=== PATIENT | female | born 1950 | race Caucasian/White ===

== ENCOUNTER 2018-12-08 23:45 | Observation (INO) | payer OTHER ==
[2018-12-09 00:22] LABS: Absolute Lymphocytes (CBC) 2.9 K/uL (0.7-4.9); Absolute Monocytes 0.4 K/uL (0.1-1.3); Absolute Neutrophil 3.2 K/uL (1.8-8.0); Basophils % 0.5 % (0-1.3); Eosinophils % 1.5 % (0-4.4); Lymphocytes % 42.8 % (15.3-44.8); MPV 8.7 fL (7.6-11.3); Monocytes % 6.7 % (3.3-12.3); RBC Red Blood Cell Count 4.64 M/uL (3.86-4.86)
[2018-12-09 00:42] LABS: Protime INR 0.98
[2018-12-09 00:43] LABS: ALT/SGPT 31 U/L (12-78); AST/SGOT 14 U/L (15-37); Albumin 3.7 g/dL (3.4-5.0); Alkaline Phosphatase 108 U/L (45-117); BUN Blood Urea Nitrogen 23 mg/dL (7-18); Bicarbonate 24 mmol/L (21-32); Bilirubin Direct < 0.1 mg/dL (0-0.2); Bilirubin Total 0.2 mg/dL (0.2-1.0); Glucose Level 239 mg/dL (74-106); NT PRO-BNP 43 pg/mL (<125); Potassium 4.2 mmol/L (3.5-5.1); Protein, Total 6.9 g/dL (6.4-8.2); Sodium Level 139 mmol/L (136-145); Troponin (Emerg Dept Use Only) 0.03 ng/mL (0.0-0.045)
[2018-12-09] MEDS ORDERED: ASPIRIN 81 MG CHEWABLE TABLET ONE (00:50)
[2018-12-09] MEDS ORDERED: MORPHINE 2 MG/ML SYR ONE (01:34)
--- NOTE | 2018-12-09 01:36 | EDPHYS ---
Physician Documentation [facility] Name: Smita Covarrubias Age: 68 yrs Sex: Female : 1950 Arrival Date: 12/08/2018 Time: 23:46 Bed 6 Private MD: Glenna Butler C ED Physician Fernie Hercules HPI: 12/09 06:13 This 68 yrs old Female presents to ER via Wheelchair with complaints of Chest tw4 Pain. 06:13 The patient or guardian reports chest pain that is located primarily in the substernal tw4 area. Onset: today. The pain does not radiate. Associated signs and symptoms: The patient has no apparent associated signs or symptoms. Duration: The patient or guardian reports a single episode. Severity of pain: At its worst the pain was mild in the emergency department the pain is unchanged. Historical: - Allergies: 00:04 No Known Allergies; tl1 - Home Meds: 00:04 aspirin 81 mg Oral TbEC 1 tab once daily [Active]; allopurinol 300 mg Oral tab 1 tab tl1 once daily [Active]; losartan 25 mg oral tab 1 tab once daily [Active]; Lyrica oral oral [Active]; duloxetine oral oral [Active]; Metformin Oral [Active]; Glipizide Oral [Active]; Magnesium Oxide Oral [Active]; - PMHx: 00:04 Diabetes - NIDDM; Hypertension; Glaucoma; Arthritis; melanoma; tl1 - PSHx: 00:04 Tonsillectomy; Hysterectomy; Appendectomy; ; Knee surgery; tl1 - Immunization history:: Adult Immunizations up to date. - Social history:: Smoking status: Patient/guardian denies using tobacco, never smoked, Patient/guardian denies using alcohol, street drugs. - Ebola Screening: : Patient negative for fever greater than or equal to 101.5 degrees Fahrenheit, and additional compatible Ebola Virus Disease symptoms Patient denies exposure to infectious person Patient denies travel to an Ebola-affected area in the 21 days before illness onset. ROS: 06:13 Constitutional: Negative for fever, chills, and weight loss, ENT: Negative for injury, tw4 pain, and discharge, Respiratory: Negative for shortness of breath, cough, wheezing, and pleuritic chest pain, Abdomen/GI: Negative for abdominal pain, nausea, vomiting, diarrhea, and constipation, Back: Negative for injury and pain, MS/Extremity: Negative for injury and deformity, Skin: Negative for injury, rash, and discoloration. 06:13 Cardiovascular: Positive for chest pain. Exam: 02:58 Constitutional: This is a well developed, well nourished patient who is awake, alert, tw4 and in no acute distress. Head/Face: Normocephalic, atraumatic. Chest/axilla: Normal chest wall appearance and motion. Nontender with no deformity. No lesions are appreciated. Cardiovascular: Regular rate and rhythm with a normal S1 and S2. No gallops, murmurs, or rubs. Normal PMI, no JVD. No pulse deficits. Respiratory: Lungs have equal breath sounds bilaterally, clear to auscultation and percussion. No rales, rhonchi or wheezes noted. No increased work of breathing, no retractions or nasal flaring. Abdomen/GI: Soft, non-tender, with normal bowel sounds. No distension or tympany. No guarding or rebound. No evidence of tenderness throughout. Back: No spinal tenderness. No costovertebral tenderness. Full range of motion. MS/ Extremity: Pulses equal, no cyanosis. Neurovascular intact. Full, normal range of motion. Neuro: Awake and alert, GCS 15, oriented to person, place, time, and situation. Cranial nerves II-XII grossly intact. Motor strength 5/5 in all extremities. Sensory grossly intact. Cerebellar exam normal. Normal gait. Vital Signs: 00:04 BP 149 / 79; Pulse 86; Resp 17; Temp 98.8; Pulse Ox 100% ; Weight 82.55 kg; Height 5 tl1 ft. 6 in. (167.64 cm); Pain 10/10; 00:30 BP 129 / 70; Pulse 78; Resp 17; Pulse Ox 97% on R/A; tl1 01:19 BP 111 / 69; Pulse 77; Resp 15; Pulse Ox 100% ; tl1 02:45 BP 125 / 66; Pulse 72; Resp 13; Pulse Ox 100% on R/A; tl1 04:07 BP 109 / 65; Pulse 68; Resp 17; Temp 98.7(O); Pulse Ox 100% ; Pain 0/10; tl1 00:04 Body Mass Index 29.38 (82.55 kg, 167.64 cm) [facility] MDM: 00:17 Patient medically screened. tw4 06:13 Differential diagnosis: acute myocardial infarction, acute pericarditis, anxiety, chest tw4 wall pain, gastroesophageal reflux disease (GERD), herpes zoster. HEART Score: History:. Data reviewed: vital signs, nurses notes. Data interpreted: Pulse oximetry: Interpretation: normal. Test interpretation: by ED physician or midlevel provider: ECG, plain radiologic studies. Counseling: I had a detailed discussion with the patient and/or guardian regarding: the historical points, exam findings, and any diagnostic results supporting the discharge/admit diagnosis, lab results, radiology results. Physician consultation: A Carrie SHI was contacted at 06:10, regarding admission, patient's condition, and will see patient in inpatient room. 12/08 23:59 Order name: Basic Metabolic Panel [facility] 12/08 23:59 Order name: CBC with Diff [facility] 12/08 23:59 Order name: LFT's [facility] 12/08 23:59 Order name: Magnesium [facility] 12/08 23:59 Order name: NT PRO-BNP [facility] 12/08 23:59 Order name: PT-INR [facility] 12/08 23:59 Order name: Troponin (emerg Dept Use Only) [facility] 12/08 23:59 Order name: XRAY Chest (1 view) [facility] 12/08 23:59 Order name: EKG; Complete Time: 23:59 [facility] 12/08 23:59 Order name: Cardiac monitoring; Complete Time: 00:11 [facility] 12/08 23:59 Order name: EKG - Nurse/Tech; Complete Time: 00:11 12/09 04:25 Order name: Troponin I [facility] 12/08 23:59 Order name: IV Saline Lock; Complete Time: 00:11 [facility] 12/08 23:59 Order name: Labs collected and sent; Complete Time: 00:11 [facility] 12/08 23:59 Order name: O2 Per Protocol; Complete Time: 00:11 [facility] 12/08 23:59 Order name: O2 Sat Monitoring; Complete Time: 00:11 EC:58 Rate is 80 beats/min. Rhythm is regular, Normal Sinus Rhythm. QRS [place] is Normal. RI tw4 interval is normal. QRS interval is normal. QT interval is normal. No Q waves. T waves are Normal. Clinical impression: Normal ECG. Interpreted by me. Reviewed by me. Administered Medications: 00:40 Drug: Aspirin Chewable Tablet 324 mg Route: PO; tl1 02:28 Follow up: Response: No adverse reaction; No change in condition tl1 01:26 Drug: morphine 2 mg Route: IVP; Infused Over: 2 mins; Site: right antecubital; tl1 02:28 Follow up: Response: No adverse reaction; No change in condition; Pain is unchanged, tl1 physician notified Disposition: 12/09/18 01:36 Hospitalization ordered by Glenna Butler for Observation. Preliminary diagnosis is Chest pain, unspecified. - Bed requested for Telemetry/MedSurg (observation). - Status is Observation. tl1 - Condition is Stable. - Problem is new. - Symptoms have improved. UTI on Admission? No Signatures: Dispatcher [employer] EDMS Kathie Hinkle RN RN tl1 Robyn Barton RN RN Fernie Hercules MD MD tw4 Corrections: (The following items were deleted from the chart) 03:22 01:36 Hospitalization Ordered by A Carrie SHI for Observation. Preliminary diagnosis is cg Chest pain, unspecified. Bed requested for Telemetry/MedSurg (observation). Status is Observation. Condition is Stable. Problem is new. Symptoms have improved. UTI on Admission? No. tw4 04:28 03:22 12/09/2018 01:36 Hospitalization Ordered by A Carrie SHI for Observation. tl1 Preliminary diagnosis is Chest pain, unspecified. Bed requested for Telemetry/MedSurg (observation). Status is Observation. Condition is Stable. Problem is new. Symptoms have improved. UTI on Admission? No. cg
--- NOTE | 2018-12-09 01:36 | ER ---
Nurse's Notes [facility] Name: Smita Covarrubias Age: 68 yrs Sex: Female : 1950 Arrival Date: 12/08/2018 Time: 23:46 Bed 6 Private MD: Glenna Butler C Diagnosis: Chest pain, unspecified Presentation: 12/08 23:59 Presenting complaint: Patient states: for about 2 weeks I have been having intermittent tl1 chest pain that feels like pins and needles and a punching feeling every 30 seconds or so. Transition of care: patient was not received from another setting of care. Onset of symptoms was November 23, 2018. Risk Assessment: Do you want to hurt yourself or someone else? Patient reports no desire to harm self or others. Initial Sepsis Screen: Does the patient meet any 2 criteria? No. Patient's initial sepsis screen is negative. Does the patient have a suspected source of infection? No. Patient's initial sepsis screen is negative. Care prior to arrival: None. 23:59 Method Of Arrival: Wheelchair tl1 23:59 Acuity: SHAHAB 3 tl1 Historical: - Allergies: 12/09 00:04 No Known Allergies; tl1 - Home Meds: 00:04 aspirin 81 mg Oral TbEC 1 tab once daily [Active]; allopurinol 300 mg Oral tab 1 tab tl1 once daily [Active]; losartan 25 mg oral tab 1 tab once daily [Active]; Lyrica oral oral [Active]; duloxetine oral oral [Active]; Metformin Oral [Active]; Glipizide Oral [Active]; Magnesium Oxide Oral [Active]; - PMHx: 00:04 Diabetes - NIDDM; Hypertension; Glaucoma; Arthritis; melanoma; tl1 - PSHx: 00:04 Tonsillectomy; Hysterectomy; Appendectomy; ; Knee surgery; tl1 - Immunization history:: Adult Immunizations up to date. - Social history:: Smoking status: Patient/guardian denies using tobacco, never smoked, Patient/guardian denies using alcohol, street drugs. - Ebola Screening: : Patient negative for fever greater than or equal to 101.5 degrees Fahrenheit, and additional compatible Ebola Virus Disease symptoms Patient denies exposure to infectious person Patient denies travel to an Ebola-affected area in the 21 days before illness onset. Screenin:08 Abuse screen: Denies threats or abuse. Denies injuries from another. Nutritional tl1 screening: No deficits noted. Tuberculosis screening: No symptoms or risk factors identified. Fall Risk IV access (20 points). Assessment: 00:08 General: Appears in no apparent distress. Behavior is calm, cooperative, appropriate tl1 for age. Pain: Complains of pain in anterior aspect of left upper chest Pain does not radiate. Quality of pain is described as sharp, stinging, Pain began approx 2 weeks [employer] Is intermittent. Neuro: Level of Consciousness is awake, alert, obeys commands, Oriented to person, place, time, situation. Cardiovascular: Reports chest pain, Denies nausea, palpitations, shortness of breath, Capillary refill < 3 seconds Patient's skin is warm and dry. Rhythm is regular. Respiratory: Airway is patent Trachea midline Respiratory effort is even, unlabored, Breath sounds are clear bilaterally. GI: Abdomen is non-distended, Bowel sounds present X 4 quads. Abd is soft and non tender X 4 quads. : No signs and/or symptoms were reported regarding the genitourinary system. 04:08 Reassessment: No changes from previously documented assessment. Patient and/or family tl1 updated on plan of care and expected duration. Pain level reassessed. Patient is alert, oriented x 3, equal unlabored respirations, skin warm/dry/pink. Vital Signs: 00:04 BP 149 / 79; Pulse 86; Resp 17; Temp 98.8; Pulse Ox 100% ; Weight 82.55 kg; Height 5 tl1 ft. 6 in. (167.64 cm); Pain 10/10; 00:30 BP 129 / 70; Pulse 78; Resp 17; Pulse Ox 97% on R/A; tl1 01:19 BP 111 / 69; Pulse 77; Resp 15; Pulse Ox 100% ; tl1 02:45 BP 125 / 66; Pulse 72; Resp 13; Pulse Ox 100% on R/A; tl1 04:07 BP 109 / 65; Pulse 68; Resp 17; Temp 98.7(O); Pulse Ox 100% ; Pain 0/10; tl1 00:04 Body Mass Index 29.38 (82.55 kg, 167.64 cm) tl1 ED Course: 12/08 23:46 Patient arrived in ED. edilia 23:46 Glenna Butler MD is Private Physician. edilia 23:58 Kathie Hinkle, RN is Primary Nurse. tl1 12/09 00:00 Triage completed. tl1 00:05 Arm band placed on right wrist. tl1 00:05 Patient has correct armband on for positive identification. Placed in gown. Call light tl1 in reach. Side rails up X 1. youth nutritional monitor on. Pulse ox on. NIBP on. 00:07 No provider procedures requiring assistance completed. Inserted saline lock: 20 gauge tl1 in right antecubital area, using aseptic technique. Blood collected. Patient maintains SpO2 saturation greater than 95% on room air. 00:14 X-ray completed. Portable x-ray completed in exam room. Patient tolerated procedure kw well. 00:16 XRAY Chest (1 view) In Process Unspecified. EDMS 00:17 Fernie Hercules MD is Attending Physician. tw4 01:34 Glenna Butler MD is Hospitalizing Provider. tw4 04:09 Patient admitted, IV remains in place. tl1 Administered Medications: 00:40 Drug: Aspirin Chewable Tablet 324 mg Route: PO; tl1 02:28 Follow up: Response: No adverse reaction; No change in condition tl1 01:26 Drug: morphine 2 mg Route: IVP; Infused Over: 2 mins; Site: right antecubital; tl1 02:28 Follow up: Response: No adverse reaction; No change in condition; Pain is unchanged, tl1 physician notified Outcome: 01:36 Decision to Hospitalize by Provider. tw4 04:08 Admitted to Tele accompanied by tech, via wheelchair, with chart, Report called to Mulu sainz RN 04:08 Condition: stable 04:08 Instructed on the need for admit. 04:28 Patient left the ED. tl1 Signatures: Dispatcher [employer] Skylar Rodriguez Kimberlee kw Lasagna, Tonya, RN RN tl1 Fernie Hercules MD MD tw4
[2018-12-09 06:12] VITALS: BMI 29.3
[2018-12-09] MEDS ORDERED: D50W 25 GM/50 ML SYRINGE IV PRN (07:23)
[2018-12-09] MEDS ORDERED: GLUCAGON 1 MG/VIAL IM PRN (07:23)
[2018-12-09] MEDS: INSULIN -REGULAR HUMAN 50 UNIT/0.5 ML ML SQ SCH ×2 (07:30→12:18)
[2018-12-09] MEDS ORDERED: INFLUENZA VACCINE (for 3y+) 0.5 ML DOSE IMVAC ONE (08:00)
[2018-12-09] MEDS ORDERED: HOME MED 1 EA UNK (Metformin Hcl [Metformin Hcl] 1 TAB) PO SCH (08:00)
--- NOTE | 2018-12-09 08:05 | RAD REPORT ---
EXAM DESCRIPTION: Alissa Single View12/09/2018 12:15 am CLINICAL HISTORY: Chest pain COMPARISON: November 27, 2018 FINDINGS: The lungs appear clear of acute infiltrate. The heart is normal size IMPRESSION: No acute abnormalities displayed
--- NOTE | 2018-12-09 08:44 | EKG ---
Test Date: 2018-12-08 Test Time: 23:54:17 [place] Supervisor: EDDIE MEASUREMENT RESULTS: Intervals: Rate: 80 [place]: 140 QRSD: 94 QT: 388 QTc: 447 Spencer: P: 40 KY: 140 QRS: 63 T: 74 INTERPRETIVE STATEMENTS: Normal sinus rhythm Normal ECG Compared to ECG 01/24/2015 17:09:07 No significant changes Electronically Signed On 12-09-18 08:43:08 SIDE LASTER by Charlie Zaragoza
[2018-12-09] MEDS ORDERED: ASPIRIN EC 81 MG TAB PO SCH (09:00)
[2018-12-09] MEDS ORDERED: DULOXETINE HCL 30 MG PO SCH (09:00)
[2018-12-09] MEDS ORDERED: GLIPIZIDE PO SCH (09:00)
[2018-12-09] MEDS ORDERED: HOME MED 1 EA UNK (Allopurinol [Allopurinol] 300 MG) PO SCH (09:00)
[2018-12-09] MEDS ORDERED: HOME MED 1 EA UNK (Losartan Potassium [Losartan Potassium] 25 MG) PO SCH (09:00)
[2018-12-09] MEDS ORDERED: HOME MED 1 EA UNK (Pregabalin [Lyrica*] 50 MG) PO SCH (09:00)
[2018-12-09] MEDS ORDERED: HOME MED 1 EA UNK (Rosuvastatin Calcium [Rosuvastatin Calcium] 20 MG) PO SCH (09:00)
--- NOTE | 2018-12-09 10:52 | RAD REPORT ---
EXAM DESCRIPTION: US - Abdomen Exam Complete - 12/09/2018 9:50 am CLINICAL HISTORY: Abdominal pain, right flank pain COMPARISON: Abdomen ultrasound March 2018, CT imaging January 2014 FINDINGS: Gallbladder size is normal. Multiple 10 mm or less sized mobile gallstones are identified. There is no wall thickening or pericholecystic fluid seen. Common bile duct is normal with no common duct stone identified. Liver is 16 cm in maximum dimension. Spleen is 10 cm in maximum dimension. No focal liver or spleen lesion. No liver capsular nodularity. Liver echogenicity is fractionally incre ased. This could indicate a very mild fatty infiltration pattern. Doppler evaluation shows normal selam w direction and velocity of the portal vein. The pancreas is grossly normal but partially obscured. Mild fullness of the right renal pelvis and lower pole calices noted new from the 2018 ultrasound. Ea rly hydronephrosis related to an obstructing calculus is possible. Patient has had prior episodes of obstructing calculi. No left-sided hydronephrosis. No abnormal cortical echogenicity. Cortex is sanjana l in thickness. No solid mass lesions identifiable. Aorta and IVC show no suspicious findings. No ascites or bulky lymphadenopathy. IMPRESSION: Fullness of the right side renal pelvis and lower pole calices new from March 2018 ultras ound. In a patient with prior history of obstructing renal calculi, findings could reflect early hydr onephrosis. As clinical findings warrant, followup CT stone protocol study could be performed to confirm the darcie y hydronephrosis and to localize any obstructing calculus. Multi stone cholelithiasis as previously detailed. No acute gallbladder or biliary tree findings evid ent.
--- NOTE | 2018-12-09 13:41 | RAD REPORT ---
EXAM DESCRIPTION: CT - Stone Protocol - 12/09/2018 1:17 pm CLINICAL HISTORY: Abdominal pain. Right flank pain COMPARISON: 2013 TECHNIQUE: Computed axial tomography of the abdomen pelvis was obtained without oral or IV contrast. Lack of IV and oral contrast limits evaluation of solid organs, bowel, and vessels. Coronal reformat samantha images were obtained and reviewed. All CT scans are performed using dose optimization technique as appropriate and may include automated exposure control or mA/KV adjustment according to patient size. FINDINGS: Bilateral small nonobstructing renal calculi. Mild fullness of the right renal pelvis with out an obstructing calculus. A ureteral calculus is not seen. A bladder calculus is not noted. The liver, spleen, pancreas and adrenals appear grossly normal Gallstones without gallbladder wall thickening Spondylosis involves the lumbar spine resulting spinal stenosis IMPRESSION: Small bilateral nonobstructing renal calculi Cholelithiasis without cholecystitis
[2018-12-09 15:26] VITALS: O2SAT 99
[2018-12-09 17:58] VITALS: BP 134/79; TEMP 97.3
--- NOTE | 2018-12-11 01:48 | CON ---
Date of Consultation: 12/09/2018 Reason For Consultation: Chest pain. History Of Present Illness: Ms. Covarrubias is a 68-year-old white woman who has multiple cardiac risk fac tors for heart disease including diabetes, dyslipidemia. She also has a history of gout and neuropat hy from diabetes. She has been going under a lot of stress from caring for her . She came in with sharp fleeting chest pain that is nonexertional, mostly in the left upper chest. Her symptoms would last for seconds. Denied any nausea, vomiting, PND, orthopnea, pedal edema, palpitations, or s yncope. Denied any fever, cough, and chills. She has already had a normal chest x-ray, normal tropo ramirez, and a normal EKG. Past Medical History: As stated above. Allergies: NONE. Review of Systems: Negative. Social History: Negative for tobacco. Family History: Positive for heart disease. Medications: At home include allopurinol, glipizide, Victoza, losartan, metformin, Lyrica, and Crest or. Physical Examination: General: She was pleasant. No acute distress. Vital Signs: Stable. Sinus rhythm. HEENT: Negative. Neck: Supple with no bruit. Chest: Clear to auscultation and percussion. Cardiac: Revealed a regular rhythm and rate without any murmurs, gallops, or rubs. Abdomen: Benign. Extremities: Revealed no clubbing, cyanosis, or edema. Diagnostic Data: Within normal limit. An abdominal ultrasound is pending. Impression And Plan: Atypical chest pain in a patient with multiple cardiac risk factors. Chest donn n sounds more pleuritic or musculoskeletal, but nevertheless, with her cardiac risk factors, I think obtaining an echocardiogram and a stress test is reasonable. This certainly can be done as an outpat ient. The case was discussed with Dr. Butler. Her diabetes and dyslipidemia seem to be well controlroberth MENESES Voice ID: [id number] Report ID: [id number]
== END 2018-12-09 16:58 | disposition home or self-care (01) ==
LOC: ER 23:45 → ERHOLD 12-09 02:54 → 4TH 12-09 04:10
PROVIDERS: ADMIT Internal Medicine; ATTEND Internal Medicine
DX: R07.89 Other chest pain (principal); E11.9 Type 2 diabetes mellitus without complications; E78.5 Hyperlipidemia, unspecified; M10.9 Gout, unspecified; Z23 Encounter for immunization
CPT/HCPCS: 93005; 85025; 80048; 36415 ×2; 83735; 85610; 82962 ×3; 80076; 84484 ×4; 83880; 76377; 74176; 71045; 76700; 96374; 99285; G0008; Q2035; J2270; G0378 ×2

== ENCOUNTER 2021-07-30 09:08 | Observation (INO) | payer OTHER ==
[2021-07-30] MEDS ORDERED: D50W 25 GM/50 ML SYRINGE IV PRN (11:01)
[2021-07-30] MEDS ORDERED: GLUCAGON 1 MG/VIAL IM PRN (11:01)
[2021-07-30] MEDS ORDERED: ONDANSETRON 4 MG/2 ML VIAL IV PRN (11:03)
[2021-07-30] MEDS ORDERED: MORPHINE 2 MG/ML SYR IV PRN (11:03)
[2021-07-30 11:30] LABS: Absolute Lymphocytes (CBC) 1.9 K/uL (0.7-4.9); Basophils % 0.6 % (0-1.3); Hematocrit 37.7 % (36.0-45.0); Lymphocytes % 27.5 % (15.3-44.8); MPV 8.5 fL (7.6-11.3); RBC Red Blood Cell Count 4.63 M/uL (3.86-4.86)
[2021-07-30] MEDS: INSULIN -REGULAR HUMAN 50 UNIT/0.5 ML ML SQ SCH ×3 (11:30→21:21)
[2021-07-30 11:31] LABS: Protime INR 0.96
[2021-07-30 12:00] LABS: Albumin 3.9 g/dL (3.4-5.0); Bilirubin Total 0.3 mg/dL (0.2-1.0); Magnesium 1.8 mg/dL (1.8-2.4); Potassium 4.6 mmol/L (3.5-5.1); Protein, Total 7.4 g/dL (6.4-8.2)
[2021-07-30] MEDS: NA CHLORIDE 0.9% 1,000 ML IV SCH ×2 (12:00→22:00)
[2021-07-30] MEDS: METRONIDAZOLE 500mg IVPB 500 MG/100 ML BAG IV SCH ×2 (12:00→16:41)
[2021-07-30] MEDS ORDERED: MAGNESIUM SULFATE 1 gm IVPB 1 GM/100 ML BAG IV ONE (12:35)
--- NOTE | 2021-07-30 13:13 | RAD REPORT ---
EXAM DESCRIPTION: US - Abdomen Exam Complete - 07/30/2021 12:56 pm CLINICAL HISTORY: acute cholecystitis COMPARISON: Stone Protocol dated 07/12/2021; Abdomen Exam Complete dated 12/09/2018 FINDINGS: Gallbladder size is normal. Several small gallstones are identifiable. This has been previ ously demonstrated. No stone was seen is fixed at the neck. There is no wall thickening or pericholec ystic fluid identified. Common bile duct is normal with no common duct stone identified. Liver shows a coarsened, increased echogenicity consistent with a diffuse fatty infiltration. Small a reas of comparatively hypoechoic liver parenchyma noted. These are believed to be areas of spared par enchyma. Neoplastic or other aggressive liver lesion is felt to be unlikely. No portal vein abnormali ty seen. The pancreas is grossly normal but partially obscured by bowel. No hydronephrosis or suspicious mass in either kidney. Small renal cysts are present. No worrisome re nal finding. Aorta and IVC show no significant finding. No ascites or bulky lymphadenopathy. IMPRESSION: Cholelithiasis is present similar to prior imaging studies. Acute cholecystitis findings are not seen. Fatty infiltration of the liver with areas of spared parenchyma seen. Aggressive or worrisome liver l esion not identified.
[2021-07-30 13:19] VITALS: BMI 31.3
--- NOTE | 2021-07-30 13:36 | RAD REPORT ---
EXAM DESCRIPTION: RAD - Chest Pa And Lat (2 Views) - 07/30/2021 12:55 pm CLINICAL HISTORY: acute cholecystitis COMPARISON: Portable November 2018 TECHNIQUE: Frontal and lateral views of the chest were obtained. FINDINGS: The lungs are clear. Heart size is normal and central vasculature is within normal limit s. No pleural effusion or pneumothorax seen. No acute bony finding noted. No aortic abnormality. IMPRESSION: No acute cardiopulmonary process. No significant change from comparison study.
[2021-07-30] MEDS ORDERED: Levofloxacin500mg IV 500 MG/100 ML BAG IV SCH (14:00)
[2021-07-30] MEDS ORDERED: NA CHLORIDE 0.9% 1,000 ML ONE (14:08)
[2021-07-30] MEDS ORDERED: CEFOXITIN/NS 1gm 1 GM/50 ML BAG ONE (14:13)
[2021-07-30 14:25] LABS: Urine Appearance CLEAR (Clear); Urine Blood NEGATIVE (Negative); Urine Color YELLOW (Yellow); Urine Glucose NEGATIVE (Negative); Urine Protein 2+ (Negative); Urine Specific Gravity 1.025 (1.005-1.030); Urine Urobilinogen 0.2 mg/dL (0.2-1.0); Urine pH 5.5 (5.0-7.0)
[2021-07-30 14:29] LABS: Urine Bilirubin 1+ (Negative)
[2021-07-30] MEDS ORDERED: LIDOCAINE 2% MPF 5 ML VIAL ONE (14:33)
[2021-07-30] MEDS ORDERED: propofoL 200 MG/20 ML VIAL IV ONE (14:33)
[2021-07-30] MEDS ORDERED: ROCURONIUM 50 MG/5 ML VIAL IV ONE (14:33)
[2021-07-30] MEDS ORDERED: FENTANYL CITR 100 MCG/2 ML ONE (14:33)
[2021-07-30] MEDS ORDERED: MIDAZOLAM HCL 2 MG/2 ML INJ ONE (14:33)
[2021-07-30] MEDS ORDERED: ONDANSETRON 4 MG/2 ML VIAL ONE (14:34)
[2021-07-30 14:38] LABS: Urine Bacteria NONE SEEN /HPF (<20); Urine Mucus 1+ /HPF (NONE SEEN); Urine RBC <5 /HPF (NONE SEEN)
[2021-07-30] MEDS ORDERED: KETOROLAC 30 MG/ML INJ ONE (15:26)
[2021-07-30] MEDS ORDERED: dexAMETHasone 10 MG/ML VIAL ONE (15:26)
[2021-07-30] MEDS ORDERED: GLYCOPYRROLATE 0.2 MG/ML SYR ONE (15:30)
[2021-07-30] MEDS ORDERED: NEOSTIGMINE 1 MG/ML -5 ML ONE (15:30)
--- NOTE | 2021-07-30 15:36 | P.OP ---
Physician/Allergy/Immunology: Jesse SEAY Preoperative diagnosis: Acute Cholecystitis and Cholelithiasis Postoperative diagnosis: Same Primary procedure: Lap Cara Anesthesia: General Estimated blood loss: min Specimen: GB Findings: as above Complications: None Transferred to: Recovery Room Condition: Good
[2021-07-30] MEDS ORDERED: HYDROCODONE/APAP 7.5/325 MG TAB PO PRN (15:53)
[2021-07-30] MEDS ORDERED: LABETALOL 20 MG/4ML SYRINGE IV ONE (16:14)
[2021-07-30] MEDS ORDERED: Ringers Lactate 1,000 ML IV ONE (16:18)
[2021-07-30] MEDS ORDERED: HYDROMORPHONE HCL 1 MG/ML INJ ONE (16:26)
[2021-07-30] MEDS ORDERED: INSULIN -REGULAR HUMAN 50 UNIT/0.5 ML ML ONE (16:40)
[2021-07-30] MEDS ORDERED: PNEUMOCOCCAL VACCINE 0.5 ML IMVAC ONE (18:00)
[2021-07-30] MEDS ORDERED: INFLUENZA VACCINE (for 6+ mo) 0.5 ML DOSE IMVAC ONE (18:00)
--- NOTE | 2021-07-30 18:13 | PREOPCON ---
Date of Consultation: 07/30/2021 Chief Complaint: Abdominal pain. History Of Present Illness: The patient is a 70-year-old female, who presented to Dr. Butler's office early this morning with epigastric pain, right upper quadrant pain going to the back, associated with nausea, bloating, heartburn and the pain also was underneath the breasts on both sides that has subs ided. She does not have any diarrhea, constipation, blood in her stool. No dysuria or hematuria. N o sore throat, runny nose, cough, headaches, or dizziness. No chest pain. No fever or chills. The patient did have a CAT scan done earlier this month first ordered by the urologist because of recurre nt UTIs. She does have a history of stones. In that report she was found to have a mild acute sigmo id diverticulitis. She was clinically asymptomatic for it so I am not sure whether the urologist mendy ated that or not; however, her pain is not in the left lower quadrant at this time. Review of Systems: Otherwise unremarkable. Past Medical History: None for diabetes. 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 Allergies: NO ALLERGIES. Social History: She denies smoking or drinking. Family History: Significant for diabetes. Physical Examination: Vital Signs: Stable. She is afebrile. She is awake, alert, and oriented x3. Head and neck: Cranial nerves 2 through 12 are grossly within normal limits. No neck masses. No JV D. Throat clear. Neck supple. Chest: Clear. Heart: S1 and S2. Abdomen: Soft, nondistended. Positive bowel sounds. Positive right upper quadrant tenderness. Min imal rebound. No rigidity or guarding. Extremity: Adequately perfused. Nontender. Neuro: Nonfocal. Laboratory Data: Shows white count to be 6.9, H and H 12.5 and 37.7. INR is 0.96. Chemistry review ed. Her amylase, lipase, LFTs are within normal limits. Glucose is 238. Ultrasound of the abdomen reviewed with Dr. Cole, which showed multiple gallstones. No radiographic evidence of gallbladder wall thickening. No pericholecystic fluid. Common bile duct was 4 mm. Assessment: Acute cholecystitis and cholelithiasis. Plan discussed with Dr. Butler and we will procee d with laparoscopic cholecystectomy, possible open. The patient understands the risks, benefits, and alternatives and agrees to procedure. /MODL Voice ID: [id number] Report ID: [id number]
[2021-07-30] MEDS: HYDROMORPHONE HCL 1 MG/ML INJ IV PRN ×2 (18:17→23:04)
--- NOTE | 2021-07-30 20:34 | OP ---
Date of Procedure: 07/30/2021 Surgeon: Nick Brown MD Dip Unit Operator: Jesse Kerr, library technical assistant certified. Preoperative Diagnosis: Acute cholecystitis and cholelithiasis. Postoperative Diagnosis: Acute cholecystitis and cholelithiasis with some adhesions. Procedure Performed: Laparoscopic cholecystectomy and lysis of adhesions. Estimated Blood Loss: Minimal. Specimen: Gallbladder. Finding: As above. Anesthesia: General. Complications: None. Disposition: The patient tolerated procedure in stable condition. Taken to recovery in good general condition. Procedure In Detail: The patient was brought to the OR and placed in supine position. General anest hesia begun. The patient was prepped and draped in usual sterile fashion. Marcaine 0.5% was infiltr ated locally. A 15-blade was used to make a 1 cm supraumbilical midline incision. Subcutaneous tiss ue divided. Fascia identified and divided. #1 Vicryl stay suture was placed. Peritoneal cavity ent ered with sharp and blunt dissection. 12 mm trocar was placed into the peritoneal cavity under direc t vision. Pneumoperitoneum was established. Three 5 mm trocars were placed, [address] to the right of midline and 2 in the right subcostal region. Laparoscopy revealed chronic inflamm ation of the gallbladder with adhesions that were omental in nature, attached to the gallbladder as w ell as the liver right next to the gallbladder. These adhesions were taken down with sharp and blunt dissection. Bleeding controlled with cautery. The cautery was utilized as needed. Fundus was iden tified and retracted superiorly. Infundibulum was identified and retracted inferolaterally. Cystic duct and cystic artery were clearly identified with blunt dissection. Clips placed. Both structures divided. Cautery was used to remove the gallbladder from the liver bed. Bleeding on the liver bed was controlled with cautery. Gallbladder was retrieved through the umbilicus via an EndoCatch bag. Right upper quadrant was irrigated. Effluent was clear. No evidence of bleeding or bile leakage danny reciated. Subsequently, all trocars were removed under direct vision. No evidence of bleeding seen when they were removed and then stay sutures tied to each other to reapproximate the fascial defect. Subcutaneous wounds were irrigated, bleeding controlled with cautery. 2-0 chromic used to approxima te subcutaneous tissue and 4-0 Monocryl was used to close skin. Sterile dressing applied. The patie nt was awakened and taken to Recovery in good general condition. /MODL Voice ID: [id number] Report ID: [id number]
--- NOTE | 2021-07-30 20:55 | HP ---
Date of Admission: 07/30/2021 Chief Complaint: Abdominal pain. History Of Present Illness: This is a 70-year-old very pleasant female patient, who came into office today with 5 days history of having pain in both breast areas, epigastric region and right upper quadrant. She describes the pain is constant. No aggravating or relieving factors. No fever. Has had some nausea, but no vomiting. No chest pain. No shortness of breath. Today, her pain started to go to right scapular region as well. After I evaluated her, she was admitted to hospital with acute cholecystitis. Allergies: NO KNOWN ALLERGIES. Medications: Allopurinol 300 mg daily, alprazolam 0.25 mg daily at bedtime as needed for sleep, aspirin 81 mg p.o. daily, duloxetine 30 mg p.o. daily, glipizide 5 mg p.o. 2 times a day, losartan 25 mg p.o. daily, magnesium oxide 500 mg p.o. daily, meloxicam 15 mg p.o. daily as needed for arthritis, metformin 1000 mg p.o. 2 times a day, rosuvastatin 20 mg p.o. daily in the evening, Januvia 100 mg p.o. daily, vitamin B12 1000 mcg p.o. daily. Review of Systems: GI: As mentioned above. All other systems reviewed and negative. Past Medical History: Significant for type 2 diabetes mellitus which is uncontrolled, hypertension, mixed hyperlipidemia, known alcoholic fatty liver disease, kidney stones, and depression. Past Surgical History: Significant for tonsillectomy, wisdom tooth extraction, appendectomy, hysterectomy, knee surgery which was arthroscopic knee surgery, and removal of squamous cell carcinoma from scalp. Family History: Father , had Alzheimer disease and diabetes. Mother hypertension and rheumatoid arthritis. Social History: Negative for smoking and negative for alcohol use. Immunization History: The patient had her first dose of COVID-19 vaccine in November 01, 2020, second dose in November 22, 2020. Physical Examination: Vital Signs: Blood pressure 137/82, pulse 86, temperature 97.6, respiratory rate 15, weight 195.6 pounds, height 66 inches. General: Awake, alert, oriented, not in distress. HEENT: Head atraumatic, normocephalic. Conjunctivae nonerythematous. Sclerae white. Mouth, no thrush or edema noted. Ears/Nose, no mass, lesion, discharge noted. Neck: Supple. No JVD, lymph nodes, bruit, thyromegaly noted. Lungs: Bilateral good equal air entry. Clear to auscultation. No rhonchi. No rales. Heart: Normal heart sounds, no murmur or gallop. Abdomen: Soft. Bowel sounds normal. No guarding, rigidity, distention. No rebound tenderness. No hepatosplenomegaly. No bruit. The patient does have right upper quadrant tenderness. Extremities: No leg edema. No calf tenderness. Skin: No rash, ulcer, cellulitis. Lymphatics: No lymph node enlargement in neck, supraclavicular, infraclavicular region. Neuro: No focal neurological deficit. Chest: Unremarkable. External Genitalia: Deferred. Rectal: Deferred. Laboratory Data: White count 6.9, hemoglobin 12.5, platelets 209. Sodium 139, potassium 4.6, chloride 106, bicarb 24, BUN 27, creatinine 1.08, glucose 253. Liver function tests normal. Amylase 49, lipase 373. Urinalysis negative except 2+ protein. COVID-19 test negative. Chest x-ray; no acute cardiopulmonary changes. Abdominal ultrasound shows evidence of gallstone and fatty liver. Impression: 1. Acute cholecystitis with gallstone, without obstruction. 2. Nonalcoholic fatty liver disease. 3. Type 2 diabetes mellitus, uncontrolled. 4. Hypertension. 5. Mixed hyperlipidemia. 6. Depression. 7. Diverticulosis. Plan: We will go ahead and admit the patient to hospital for further evaluation and management of this problem. After the patient was admitted to hospital, blood work and urinalysis, chest x-ray, EKG, and ultrasound were done, results reviewed. I have requested surgical consultation from Dr. Brown and all the details were discussed with him and he evaluated the patient and subsequently took the patient to surgery today for laparoscopic cholecystectomy and surgery was done this afternoon and postoperatively the patient is doing well. I will see her tomorrow morning for followup. We will go ahead and give her pain medication and nausea medication as needed. SCD was ordered for DVT prophylaxis. Manage diabetes with sliding scale insulin and we will continue home medications per order and I will see her tomorrow morning for followup. Details and plan of treatment discussed with the patient. MAYO/MODL Voice ID: [id number] MTDD
[2021-07-31] MEDS: NA CHLORIDE 0.9% 1,000 ML IV SCH ×2 (01:22→08:00)
[2021-07-31] MEDS: METRONIDAZOLE 500mg IVPB 500 MG/100 ML BAG IV SCH ×2 (01:22→09:04)
[2021-07-31 06:06] LABS: Absolute Lymphocytes (CBC) 0.5 K/uL (0.7-4.9); Basophils % 0.1 % (0-1.3); Hematocrit 33.3 % (36.0-45.0); Lymphocytes % 4.6 % (15.3-44.8); MPV 8.6 fL (7.6-11.3); RBC Red Blood Cell Count 4.08 M/uL (3.86-4.86)
[2021-07-31] MEDS: HYDROMORPHONE HCL 1 MG/ML INJ IV PRN (06:54)
[2021-07-31 07:10] LABS: Magnesium 2.1 mg/dL (1.8-2.4); Phosphorus 3.4 mg/dL (2.5-4.9)
[2021-07-31] MEDS ORDERED: GLUCAGON 1 MG/VIAL IM PRN (07:18)
[2021-07-31] MEDS ORDERED: D50W 25 GM/50 ML SYRINGE IV PRN (07:18)
[2021-07-31] MEDS ORDERED: INSULIN GLARGINE 100 UNITS/ML SQ SCH (08:00)
[2021-07-31] MEDS ORDERED: METFORMIN HCL 500 MG TAB PO ONE (08:06)
[2021-07-31] MEDS ORDERED: glipiZIDE 5 MG TAB PO ONE (08:30)
[2021-07-31 08:46] LABS: Blood Morphology Comment NOT SEEN (NOT SEEN); Platelet Estimate ADEQ
[2021-07-31 09:00] VITALS: BP 118/57; TEMP 96.8
[2021-07-31] MEDS: INSULIN -REGULAR HUMAN 50 UNIT/0.5 ML ML SQ SCH (09:05)
[2021-07-31 09:18] VITALS: O2SAT 99
--- NOTE | 2021-07-31 14:15 | PN ---
Date of Progress Note: 07/31/2021 Subjective: The patient is awake, alert, tolerating diet, ambulating. Pain controlled with p.o. donn n medications. Afebrile. Objective: Vital Signs: Stable, afebrile. Abdomen: Benign. Laboratory Data: Checked. She did have a high potassium. It was rechecked and it was normal, so it was a hemolyzed specimen. Her H and H are stable. Assessment: Status post laparoscopic cholecystectomy for acute cholecystitis and cholelithiasis. Recommendations: The patient cleared from surgical standpoint for discharge. Followup in my office in a week. Discharge instructions given. /MODL Voice ID: [id number] Report ID: [id number]
--- NOTE | 2021-08-01 09:17 | DS ---
Date of Discharge: 07/31/2021 Disposition: Discharged to go home. Physical Examination: HEENT: Unremarkable. Lungs: Clear to auscultation. Heart: Sounds normal. Abdomen: Soft. Bowel sounds normal. No guarding, rigidity, tenderness, distention. Extremity: No leg edema. Laboratory Data: Upon admission; white count 6.9, hemoglobin 12.5, platelets 209 and repeat white co unt today 11.4, hemoglobin 11.1, platelets 170. Upon admission; sodium 139, potassium 4.6, chloride 106, bicarb 24, BUN 27, creatinine 1.08, glucose 253. Today; potassium was 6 and glucose 403. Repea t potassium this morning came back at 5.1. Hospital Course: This is a 70-year-old pleasant female patient, came into office and was admitted to the hospital with abdominal pain. After the patient was evaluated in the office, she was admitted t o the hospital with acute cholecystitis with gallstone. Please see dictated H and P for more informa tion. After she was admitted to the hospital, routine blood work was done and abdominal ultrasound w as done which showed evidence of gallstones without any evidence of obstruction. Dr. Brown was consu lted from General Surgery and he took the patient to surgery on the day of admission. This morning w junior I saw her after surgery, she is feeling much better. Pain that she had prior to the hospital adm ission and prior to surgery has resolved now. Her potassium this morning came back elevated at 6 and repeat potassium came back 5.1. So, Kayexalate 30 g p.o. x1 dose was ordered. I also ordered her L antus 10 units insulin subcutaneous injection x1 dose and she will also receive insulin per sliding s coral. The patient has not received any of her diabetes medication since admission because yesterday when she was admitted, she was n.p.o. for the surgery and today she will restart all her diabetes med ications. This morning, we did give her glipizide and metformin. The patient has uncontrolled type 2 diabetes mellitus with recent hemoglobin A1c around 11 and she is going to see manager urgent care in [facility] for further management of her diabetes. Final Diagnoses: 1.Acute cholecystitis with gallstones, without obstruction. 2.Hyperkalemia. 3.Type 2 diabetes mellitus, uncontrolled. 4.Nonalcoholic fatty liver disease. 5.Hypertension. 6.Mixed hyperlipidemia. 7.Depression. 8.Diverticulosis. Discharge Medications And Instructions: 1.Continue all prior home medications. 2.Take Levaquin 500 mg daily and metronidazole 500 mg 3 times a day for 1 week and prescription was sent to [facility]. 3.Take Tylenol 500 mg 4 times a day as needed for pain and she may take tramadol 50 mg 4 times a day as needed for pain if Tylenol does not help and prescription was written for 20 tablets. 4.Follow up at my office on 08/05/2021 at 10 a.m. 5.Follow up with Dr. Brown next week per his instruction. MAYO/MODL Voice ID: [id number] Report ID: [id number]
== END 2021-07-31 10:49 | disposition home or self-care (01) ==
LOC: 2ND 09:08 → INTOOBSV 09:08
PROVIDERS: ADMIT Internal Medicine; ATTEND Internal Medicine
PROC: 0FT44ZZ Resection of Gallbladder, Percutaneous Endoscopic Approach (ICD-10-PCS; principal; 2021-07-30 13:15)
DX: K80.00 Calculus of gallbladder with acute cholecystitis without obstruction (principal); K66.0 Peritoneal adhesions (postprocedural) (postinfection); E87.5 Hyperkalemia; E11.65 Type 2 diabetes mellitus with hyperglycemia; K76.0 Fatty (change of) liver, not elsewhere classified; I10 Essential (primary) hypertension; K57.90 Diverticulosis of intestine, part unspecified, without perforation or abscess without bleeding; E78.2 Mixed hyperlipidemia; F32.A Depression, unspecified; Z20.822 Contact with and (suspected) exposure to COVID-19; Z85.828 Personal history of other malignant neoplasm of skin; Z90.710 Acquired absence of both cervix and uterus; Z83.3 Family history of diabetes mellitus; Z82.49 Family history of ischemic heart disease and other diseases of the circulatory system; Z82.0 Family history of epilepsy and other diseases of the nervous system; Z82.61 Family history of arthritis; Z23 Encounter for immunization
CPT/HCPCS: 93005; 87088; 85025 ×2; 81001; 87086; 80048; 36415 ×2; 82150; 83735 ×2; 84100; 84132; 85610; 82947 ×5; 88304; 83690; 80053; 71046; 90471 ×2; 90732; 76700; 94010; 47562; U0003; J2704; Q2035; J2250; J3010; J3475; J1100; J1170 ×4; J2710; J7120; J7030 ×2; J0694; J2405; G0378 ×3; J1815

== ENCOUNTER 2021-11-12 07:33 | Day surgery (SDC) | payer OTHER ==
[2021-11-07 14:23] LABS: Protime INR 1.03
[2021-11-07 14:24] LABS: Absolute Lymphocytes (CBC) 1.9 K/uL (0.7-4.9); Lymphocytes % 32.5 % (15.3-44.8); MPV 8.2 fL (7.6-11.3); RBC Red Blood Cell Count 4.46 M/uL (3.86-4.86)
[2021-11-07 14:32] LABS: Potassium 4.1 mmol/L (3.5-5.1)
[2021-11-12] MEDS ORDERED: NA CHLORIDE 0.9% 1,000 ML ONE (07:48)
[2021-11-12] MEDS ORDERED: CEFAZOLIN/SWI 2gm 2 GM/20 ML SYR ONE (07:48)
[2021-11-12] MEDS ORDERED: propofoL 200 MG/20 ML VIAL IV ONE (08:28)
[2021-11-12] MEDS ORDERED: FENTANYL CITR 100 MCG/2 ML ONE (08:29)
[2021-11-12] MEDS ORDERED: MIDAZOLAM HCL 2 MG/2 ML INJ ONE (08:29)
[2021-11-12] MEDS ORDERED: dexAMETHasone 10 MG/ML VIAL ONE (08:29)
[2021-11-12] MEDS ORDERED: LIDOCAINE 1% MPF 5 ML VIAL ONE (08:29)
[2021-11-12] MEDS ORDERED: ONDANSETRON 4 MG/2 ML VIAL ONE (08:29)
[2021-11-12] MEDS ORDERED: PHENAZOPYRIDINE 100MG TAB PO ONE ×2 (09:47→10:36)
--- NOTE | 2021-11-12 09:55 | RAD REPORT ---
EXAM DESCRIPTION: RAD - Urethrocystogrphy Retrograde - 11/12/2021 9:29 am CLINICAL HISTORY: CYSTO STENT PLCMNT COMPARISON: Stone Protocol dated 07/12/2021 FINDINGS/IMPRESSION: Multiple intra operative images were submitted showing cannulation of the right ureter and contrast opacification of the right collecting system and ureter. Fluoro time: 24 seconds
[2021-11-12 09:56] VITALS: O2SAT 99
[2021-11-12] MEDS ORDERED: HYDROCODONE/APAP 7.5/325 MG TAB ONE (10:42)
[2021-11-12 10:52] VITALS: TEMP 97
--- NOTE | 2021-11-12 11:19 | OP ---
Surgeon: DENA NAVARRO Preoperative Diagnoses: 1.Right caliectasis. 2.Right ureterolithiasis. 3.Recurrent urinary tract infections. Postoperative Diagnoses: 1.No evidence of hydronephrosis or obstruction. 2.Recurrent urinary tract infections. Principal Procedures: 1.Cystoscopy. 2.Right retrograde pyelography. Indication For Procedure: Ms. Covarrubias is a 71-year-old woman, who presented to the Urology Clinic with evidence of recurrent urinary tract infections, who ultimately underwent evaluation with a CT scan, which revealed the presence of some right caliectasis and a suspected mid distal ureteral calculus. She was counseled as to the potential for presence of the obstructing stone and recommended for opera tive evaluation. Also, given her history of recurrent infections, cystoscopy was recommended. Procedure In Detail: The patient was consented in the preoperative holding area before being transfe rred to the operative suite where general anesthesia was induced. She was given Ancef 2 g IV antimic robial prophylaxis and pneumo boots were provided for DVT prophylaxis. She was placed in the lithoto my position, padded and secured to the table appropriately. Her genitalia were prepped using Hibicle ns and draped in standard fashion. The case was begun using a 22-[place] Irish rigid cystoscope to traverse the urethra and into the bladder with ease. The bladder was decompressed of some urine with mild pa rticulate matter floating within, and then the bladder was refilled with normal saline. It was then surveyed in its entirety, and the trigone was orthotopic in location along with the ureteral orifices bilaterally. The remainder of the bladder mucosa was free of mucosal lesion, foreign body, or stone throughout. There was some mild trabeculation noted. The right ureteral orifice was then cannulate d using a Sensor wire and the tip of a 5-Northern Irish ureteral access catheter. A retrograde pyelogram was then performed. Right retrograde pyelography: Using a 70:30 mixture of Omnipaque and saline, contrast was injected via the 5-Northern Irish ureteral access catheter and did propagate with ease up a nondilated ureter before entering into a nondilated renal pelvis with sharp calices without evidence of blunting or caliectasis. Because the initial contrast mixture was somewhat more dilute than the 70% usually used, I then injected full-strength contrast wh ich then caused a degree of hydronephrosis with mild caliectasis. I thus advanced a Sensor wire via the 5-Northern Irish ureteral access catheter into the upper pole of the kidney and advanced the 5-Northern Irish ure teral catheter over the Sensor wire into the renal pelvis. The renal pelvis did rapidly decompressed , and once decompressed, I backed the 5-Northern Irish ureteral access catheter down into the distal ureter j ust into the UVJ and again injected full-strength contrast. Again, contrast progressed up the ureter without evidence of obstruction, pelvocaliectasis, or other signs of obstruction. I then observed t he efflux of contrast and clearance from the collecting system, and within less than 2 minutes, nearl y the entirety of the contrast injected was cleared from the kidney indicating a complete lack of obs truction. As a result, I removed the 5-Northern Irish ureteral access catheter and her bladder was decompres sed of fluid and urine. She was then taken out of the lithotomy position, awakened from general anes thesia, transferred to a stretcher, and then transferred to the recovery room in good condition. Complications: None. Discharge Disposition: She should follow up in Urology Clinic to assess for recurrence or persistenc e of the urinary tract infection in about 1-2 months' time. Should she become symptomatic of infecti on, we would want to obtain a urine culture and document the presence of that infection to guide futu re evaluation given the normal cystoscopic evaluation without absence of obstruction from ureteral calculus at this time. JASON/AGUSTIN Voice ID: [id number] Report ID: [id number]
[2021-11-12 13:42] VITALS: BP 100/60
== END 2021-11-12 12:00 | disposition home or self-care (01) ==
LOC: OR 07:33
PROVIDERS: ATTEND Urology
PROC: 0TJB8ZZ Inspection of Bladder, Via Natural or Artificial Opening Endoscopic (ICD-10-PCS; principal; 2021-11-12 08:45)
DX: N20.1 Calculus of ureter (principal); R10.2 Pelvic and perineal pain; N39.0 Urinary tract infection, site not specified; Z20.822 Contact with and (suspected) exposure to COVID-19
CPT/HCPCS: 52000; 87088; 85025; 87086; 80048; 36415; 85610; 82947 ×2; 74450; 51610; U0002; J2704; J2250; J3010; J1100; J0690; J7030; J2405

== ENCOUNTER 2023-05-15 04:59 | Emergency (ER) | payer OTHER ==
--- OUTSIDE RECORDS SUMMARY | 2023-05-15 05:03 | XMS REPORT | Continuity of Care Document ---
:1950 Author Organization [facility] t Address [address] [facility] [address] [place] [address] Care Team Providers Name Role Phone EMETERIO HUBBARD Primary Care Physician Unavailable Emeterio Hubbard Attending Clinician Unavailable [email or web address] Attending Clinician Unavailable Nurse, Adc Pob Immunization Attending Clinician Unavailable Anderson Oneal DO Attending Clinician Mina Miller Attending Clinician MINA CABRERA Attending Clinician Unavailable [email or web address]_S Admitting Clinician Unavailable MINA CABRERA Admitting Clinician Unavailable Payers Payer Name Policy Type Policy Number Effective Date Expiration Date S kayt COVID VACCINE [id number] 2020-11-01 00:00:00 ADMIN / TESTING Problems Condition Condition Condition Status Onset Resolution Last Treating Co mments Source Name Details Category Date Date Treatment Clinician Date [id number] Kidney Problem Active Common stones [facility] [id number] Acute Problem Active Common cystitis Spirit without - [facility] hematuria [facility] [id number] Recurrent Problem Active Com mon UTI [facility] [id number] Acute Problem Active Common right Spirit flank pain - [facility] [id number] Suprapubic Problem Active Co mmon pain [facility] [id number] Ureterolit Problem Active Com mon hiasis [facility] Allergies, Adverse Reactions, Alerts Allergy Allergy Status Severity Reaction(s) Onset Inactive Treating Comm ents Source Name Type Date Date Clinician NO KNOWN Drug Active Univers ALLERGIE Class ity of S [facility] Family History Family Member Diagnosis Comments Start Date Stop Date Source Natural brother Diabetes [facility] Natural father Diabetes [facility] Natural mother Cancer [facility] Social History Social Habit Start Date Stop Date Quantity Comments Source History of Tobacco Common [facility] - Use [facility] Gender identity [facility] Sexual orientation [facility] Tobacco use and 2019-06-30 2019-06-30 Smokeless [facility] exposure 00:00:00 00:00:00 tobacco non-user Hospital Alcohol intake 2019-06-30 2019-06-30 Lifetime [facility] 00:00:00 00:00:00 non-drinker Hospital (finding) History of Social 2019-06-30 2019-06-[address] function 00:00:00 00:00:00 Hospital Sex Assigned At [birth year] [facility] 00:00:00 00:00:00 Medical Center Smoking Status Start Date Stop Date Source Unknown if ever smoked Universit y [facility] Never Smoker [facility] Medications Ordered Filled Start Stop Current Ordering Indication Dosage Frequency Signature Comments Components Source Medication Medication Date Date Medication? Clinician (SIG) Name Name Bactrim DS Bactrim DS 2021-0 2022- No 1{table BID Bactrim DS 800-160 MG 800-160 MG 10-18 t} 800-160 MG 00:00: 00:00 00 :00 Estradiol Estradiol 2020-10 No Estradiol 0.1 MG/GM 0.1 MG/GM 2-15 0.1 MG/GM 00:00: 00 Estradiol Estradiol 2020-10 No Estradiol 0.1 MG/GM 0.1 MG/GM 2-15 0.1 MG/GM 00:00: 00 Estradiol Estradiol 2020-10 No Estradiol 0.1 MG/GM 0.1 MG/GM 2-15 0.1 MG/GM 00:00: 00 tetanus-dip 2020-0 2020- No .5mL 0.5 mL, Un evert htheria 3-16 03-16 Intramuscu ity o f toxoids 19:30: 18:27 lar, ONCE, Inderjit as (TDVAX) 2-2 00 :00 1 dose, Medic al Lf unit/0.5 Mon Branch mL 12/26/19 at injection 1430, 0.5 mL Routine cephALEXin 2020- No [id number] 500mg Take 1 Univers (KEFLEX) 12-25 capsule by ity of 500 mg 00:00: 04:59 mouth 3 [place] capsule 00 :00 (three) Medical times [place] daily for 3 days. meloxicam Yes [id number] TAKE 1 M ethodi (MOBIC) 15 07-[address] mg tablet 00:00: MOUTH Hospita 00 EVERY DAY l allopurinol Yes 300mg QD Take 300 M ethodi (ZYLOPRIM) 06-[address] 300 MG 00:00: mouth Hospita tablet 00 daily. l losartan Yes 25mg QD Take 25 mg Met hodi (COZAAR) 25 06-[address] MG tablet 00:00: daily. Hospit a 00 l rosuvastati Yes 20mg QD Take 20 mg Methodi n (CRESTOR) 06-[address] 20 MG 00:00: every Hospita tablet 00 evening. l DULoxetine Yes 30mg QD Take 30 mg M ethodi (CYMBALTA) 06-[address] 30 MG 00:00: daily. Hospita capsule 00 l cyanocobala Yes 1000ug QD Take 1,000 Methodi min 06-[address] (VITAMIN 00:00: mouth Hospita B-12) 1000 00 daily. l MCG tablet magnesium Yes 1{tbl} QD Take 1 Meth binh oxide 500 06-[address] mg tablet 00:00: mouth Hospita 00 daily. l VICTOZA Yes INJECT Methodi 3-SANDRA 0.6 06-[address] mg/0.1 mL 00:00: USLY - Hospit a (18 mg/3 00 1.8MG ONCE l mL) pen DAILY injector metFORMIN Yes TAKE 1 Method i (GLUCOPHAGE - TABLET BY st ) 1,000 mg 00:00: MOUTH 2 Hosp yoon tablet 00 TIMES A l DAY WITH MORNING MEAL AND WITH THE EVENING MEAL glipiZIDE 2018-0 Yes TAKE 1 Method i (GLUCOTROL) 06-[address] 5 MG 24 hr 00:00: MOUTH 2 Hosp yoon tablet 00 TIMES A l DAY WITH BREAKFAST AND SUPPER LYRICA 50 2018- Yes 50mg Q.5D Take 50 mg Me thodi mg capsule 05-[address] 00:00: (two) Hospita 00 times a l day. Magnesium Magnesium No 2{capsu QD Magnesium Oxide 500 Oxide 500 les_at_ Oxide 500 MG MG bedtime MG _as_nee ded} Allopurinol Allopurinol No 1{table QD Allopurino 300 MG 300 MG t} l 300 MG glipiZIDE glipiZIDE No 1{table QD glipiZIDE ER 5 MG ER 5 MG t_with_ ER 5 MG food} Losartan Losartan No 1{table QD Losartan Potassium Potassium t} Potassium 25 MG 25 MG 25 MG Rosuvastati Rosuvastati No 1{table QD Rosuvastat n Calcium n Calcium t} in Calcium 20 MG 20 MG 20 MG Losartan Losartan No 1{table QD Losartan Potassium Potassium t} Potassium 25 MG 25 MG 25 MG Rosuvastati Rosuvastati No 1{table QD Rosuvastat n Calcium n Calcium t} in Calcium 20 MG 20 MG 20 MG Aspirin 81 Aspirin 81 No 1{table QD Aspirin 81 81 MG 81 MG t} 81 MG DULoxetine DULoxetine No 1{capsu QD DULoxetine HCl 30 MG HCl 30 MG le} HCl 30 MG Magnesium Magnesium No 2{capsu QD Magnesium Oxide 500 Oxide 500 les_at_ Oxide 500 MG MG bedtime MG _as_nee ded} glipiZIDE glipiZIDE No 1{table QD glipiZIDE ER 5 MG ER 5 MG t_with_ ER 5 MG food} Metformin Metformin No 1{table BID Metformin HCl 1000 MG HCl 1000 MG t_with_ HCl 1000 meals} MG Allopurinol Allopurinol No 1{table QD Allopurino 300 MG 300 MG t} l 300 MG Januvia 100 Januvia 100 No 1{table QD Januvia MG MG t} 100 MG Vitamin B12 Vitamin B12 No Vitamin B12 DULoxetine DULoxetine No 1{capsu QD DULoxetine HCl 30 MG HCl 30 MG le} HCl 30 MG Losartan Losartan No 1{table QD Losartan Potassium Potassium t} Potassium 25 MG 25 MG 25 MG Metformin Metformin No 1{table BID Metformin HCl 1000 MG HCl 1000 MG t_with_ HCl 1000 meals} MG Vitamin B12 Vitamin B12 No Vitamin B12 Januvia 100 Januvia 100 No 1{table QD Januvia MG MG t} 100 MG Rosuvastati Rosuvastati No 1{table QD Rosuvastat n Calcium n Calcium t} in Calcium 20 MG 20 MG 20 MG Allopurinol Allopurinol No 1{table QD Allopurino 300 MG 300 MG t} l 300 MG Aspirin 81 Aspirin 81 No 1{table QD Aspirin 81 81 MG 81 MG t} 81 MG glipiZIDE glipiZIDE No 1{table QD glipiZIDE ER 5 MG ER 5 MG t_with_ ER 5 MG food} Magnesium Magnesium No 2{capsu QD Magnesium Oxide 500 Oxide 500 les_at_ Oxide 500 MG MG bedtime MG _as_nee ded} Metformin Metformin No 1{table BID Metformin HCl 1000 MG HCl 1000 MG t_with_ HCl 1000 meals} MG Januvia 100 Januvia 100 No 1{table QD Januvia MG MG t} 100 MG Aspirin 81 Aspirin 81 No 1{table QD Aspirin 81 81 MG 81 MG t} 81 MG DULoxetine DULoxetine No 1{capsu QD DULoxetine HCl 30 MG HCl 30 MG le} HCl 30 MG Vitamin B12 Vitamin B12 No Vitamin B12 Immunizations Ordered Filled Immunization Date Status Comments Sour e Immunization Name Name SARS-COV-2 COVID-19 2021-06-21 Completed Unive ity of PFIZER VACCINE 00:00:00 [facility] Covid-19 Vaccine 2020-11-[address] [facility] MRNA (PF) 12yr+ 00:00:00 Medical C enter (Pfizer/BioNTech)(I [id number]) Covid-19 Vaccine 2020-11-[address] [facility] MRNA (PF) 12yr+ 00:00:00 Medical C enter (Pfizer/BioNTech)(I [id number]) Td 2019-12-26 Completed University 00:00:00 [facility] Td 2019-12-26 Completed [facility] 00:00:00 [facility] Vital Signs Vital Name Observation Time Observation Value Comments Source height 2021-10-28 16:00:00 66 [in_i] Common S pirit - [facility] weight 2021-10-28 16:00:00 190 [lb_av] [facility] temperature 2021-10-28 16:00:00 97.3 [degF] Common S pirit [facility] bmi 2021-10-28 16:00:00 30.66 kg/m2 Common S [facility] oximetry 2021-10-28 16:00:00 98 % Common S [facility] respiratory rate 2021-10-28 16:00:00 16 /min Comm on [facility] blood pressure 2021-10-28 16:00:00 133 mm[Hg] Common [facility] - systolic [facility] blood pressure 2021-10-28 16:00:00 71 mm[Hg] Common Spirit - diastolic [facility] height 2021-10-18 11:00:00 66 [in_i] Common [facility] weight 2021-10-18 11:00:00 195.6 [lb_av] [facility] temperature 2021-10-18 11:00:00 96.7 [degF] Common [facility] bmi 2021-10-18 11:00:00 31.57 kg/m2 [facility] oximetry 2021-10-18 11:00:00 98 % [facility] blood pressure 2021-10-18 11:00:00 150 mm[Hg] Common Spirit - systolic [facility] blood pressure 2021-10-18 11:00:00 81 mm[Hg] Common [facility] - diastolic [facility] height 2021-09-25 11:20:00 66 [in_i] Common [facility] weight 2021-09-25 11:20:00 195.2 [lb_av] [facility] temperature 2021-09-25 11:20:00 97.8 [degF] Common [facility] bmi 2021-09-25 11:20:00 31.5 kg/m2 Common S [facility] oximetry 2021-09-25 11:20:00 98 % Common S pirit - [facility] blood pressure 2021-09-25 11:20:00 128 mm[Hg] Common Spirit - systolic [facility] blood pressure 2021-09-25 11:20:00 73 mm[Hg] Common Spirit - diastolic [facility] Systolic blood 2019-12-26 18:00:00 138 mm[Hg] Univer sity of pressure [facility] Diastolic blood 2019-12-26 18:00:00 90 mm[Hg] Unive rsity of [facility] Heart rate 2019-12-26 18:00:00 68 /min Universi ty of [facility] Respiratory rate 2019-12-26 18:00:00 20 /min Univ ersity of [facility] Oxygen saturation in 2019-12-26 18:00:00 97 /min University of Arterial blood by [facility] Pulse oximetry Branch Body temperature 2019-12-26 16:56:00 37.28 [facility] ersity of [facility] Body weight 2019-12-26 16:56:00 83.462 kg Universi [facility] Systolic blood 2019-12-26 18:00:00 138 mm[Hg] Univer sity of [facility] Diastolic blood 2019-12-26 18:00:00 90 mm[Hg] Unive rsity of [facility] Heart rate 2019-12-26 18:00:00 68 /min Universi [facility] Respiratory rate 2019-12-26 18:00:00 20 /min Univ ersity of [facility] Oxygen saturation in 2019-12-26 18:00:00 97 /min University of Arterial blood by [facility] Pulse oximetry Branch Body temperature 2019-12-26 16:56:00 37.28 [facility] ersity of [facility] Body weight 2019-12-26 16:56:00 83.462 [facility] Procedure Date / Time Performed Performing Clinician Yue e SARS-COV-2 COVID-19 2021-06-21 19:16:01 Doctor Unassigned, No [facility] VACCINE,0.3ML,IM Name Medical Branch (PFIZER) XR HAND 3+ VW LEFT 2019-12-26 18:12:52 Mina Cabrera [facility] Medical Branch NOTICE OF PRIVACY 2019-12-26 16:47:28 Doctor Unassigned, No [facility] PRACTICES Name Medical Branch Plan of Care Planned Activity Planned Date Details Comments Source Future Scheduled 2029-12-25 DTAP/TDAP/TD VACCINES [facility] 00:00:00 (2 - Td or Tdap) [code Medic al Center = DTAP/TDAP/TD VACCINES (2 - Td or Tdap)] Future Scheduled 2023-06-12 Influenza Vaccine (#1) [facility] 00:00:00 [code = Influenza Medical Ce nter Vaccine (#1)] Future Scheduled 2023-05-15 Scre[facility] Test 05:02:12 malignant neoplasm of colon (procedure) [code = 036474619] Future Scheduled 2023-05-15 [facility] Test 05:02:12 malignant neoplasm of colon (procedure) [code = 498524595] Future Scheduled 2023-05-15 [facility] Test 05:02:12 malignant neoplasm of colon (procedure) [code = 076859311] Future Scheduled 2023-05-15 COVID-19 [facility] 05:02:12 [code = COVID-19 VACCINE (#1)] Future Scheduled 2023-05-15 BREAST CANCER [facility] Test 05:02:12 SCREENING [code = BREAST CANCER SCREENING] Future Scheduled 2023-05-15 [facility] Test 05:02:12 malignant neoplasm of colon (procedure) [code = 207220236] Future Scheduled 2023-05-15 [facility] Test 05:02:12 malignant neoplasm of colon (procedure) [code = 271881664] Future Scheduled 2023-05-15 SHINGLES VACCINES (1 [facility] 05:02:12 of 2) [code = SHINGLES VACCINES (1 of 2)] Future Scheduled 2023-05-15 65+ [facility]UMOCOCCAL [facility] Test 05:02:12 VACCINE (1 - PCV) [code = 65+ PNEUMOCOCCAL VACCINE (1 - PCV)] Future Scheduled 2023-05-15 INFLUENZA VACCINE [facility] Test 05:02:12 [code = INFLUENZA VACCINE] Future Scheduled 2022-10-[address] [facility] Test 00:00:00 (12+) [code = Medical Center DEPRESSION SCREENING (12+)] Future Scheduled 2022-10-12 FALLS RISK SCREENING [facility] Test 00:00:00 [code = FALLS RISK Medical C enter SCREENING] Future Scheduled 2021-01-17 COVID-19 VACCINE (3 - [facility] Test 00:00:00 Booster for Pfizer Medical C enter series) [code = COVID-19 VACCINE (3 - Booster for Pfizer series)] Future Scheduled 2017 PNEUMOCOCCAL 65+ Y[facility] Test 00:00:00 (1 - PCV) [code = Medical Ce nter PNEUMOCOCCAL 65+ YRS (1 - PCV)] Future Scheduled 2002 SHINGLES VACCINES ([address] [facility] Test 00:00:00 of 2) [code = SHINGLES Medic al Center VACCINES (1 of 2)] Future Scheduled 1970 HEPATITIS C SCREENING [facility] 00:00:00 [code = HEPATITIS C Medical Center SCREENING] Future Scheduled [address] [facility] Test 00:00:00 Counseling and Medical Cente r Screening (12+) [code = Tobacco Cessation Counseling and Screening (12+)] Future Scheduled 1950 Sigmoidoscopy [code = [facility] Test 00:00:00 Sigmoidoscopy] Medical Cente r Future Scheduled [address] [facility] Test 00:00:00 [facility] breast (procedure) [code = 835469571] Future Scheduled [address] [facility] Test 00:00:00 (combo) [code = CT Medical C enter Colonography (combo)] Future Scheduled [address] [facility] Test 00:00:00 malignant neoplasm of Medica l Center colon (procedure) [code = 573774614] Future Scheduled [address] [facility] Test 00:00:00 malignant neoplasm of Medica l Center colon (procedure) [code = 389943310] Future Scheduled 1950 DXA SCAN [code = DXA [facility] Test 00:00:00 SCAN] [facility] Center Future Scheduled [address] [facility] Test 00:00:00 [facility] colon (procedure) [code = 075402596] Future Scheduled [address] [facility] Test 00:00:00 [facility] colon (procedure) [code = 215927893] Encounters Start End Encounter Admission Attending Care Care Encounter Source Date/Time Date/Time Type Type Clinicians Facility Department ID 2022-05-07 Outpatient Hubbard, STLMLC STLMLC [id number] Common 13:09:01 Emeterio [id number] [facility] 2021-11-06 Outpatient Hubbard, STLMLC STLMLC [id number] Common 14:25:16 Emeterio [id number] [facility] 2021-11-06 Outpatient Hubbard, STLMLC STLMLC [id number] Common 13:53:06 Emeterio [id number] [facility] 2023-05-11 2023-05-11 Outpatient [email or web address] PRIV PRIV [id number] [facility] 00:00:00 00:00:00 diyala_S [id number] Medic al 2021-10-28 2021-10-28 (PROC) STLMLC STLMLC [id number] Co mmon 00:00:00 00:00:00 Procedure Spir it - [facility] 2021-10-18 2021-10-18 OFFICE STLMLC STLMLC [id number] Co mmon 00:00:00 00:00:00 VISIT Spirit ESTAB PT - CHI LEVEL 4 [facility] 2021-09-25 2021-09-25 OFFICE STLMLC STLMLC [id number] Co mmon 00:00:00 00:00:00 VISIT EST Spir it PT LEVEL 3 - [facility] 2021-06-21 2021-06-21 Imm/Inj Nurse, Ryder Pob Immunization [facility] [id number] Univers 14:14:55 14:15:06 Visit Anderson Oneal [id number] Emeli[place]ury [id number] Payam Palmer [phone] [address] 2020-11-22 2020-11-[address] [facility] [id number] [facility] 00:00:00 00:00:00 2020-11-01 2020-11-[address] [facility] [id number] [facility] 00:00:00 00:00:00 2019-12-26 2019-12-26 Emergency Mina Cabrera [facility] [id number] 11:57:48 15:27:00 T [place] [id number] [place] [id number] [place] [id number] 2019-12-26 2019-12-26 Emergency X MINA CABRERA [facility] ERT [id number] Univers 11:57:48 15:27:00 ity of [facility] 2019-12-26 2019-12-26 Emergency Mina Cabrera [facility] [id number] [facility] 11:57:48 15:27:00 T [place] [id number] i ty [facility] [id number] [facility] [phone] [facility] 08 Branch Results Test Description Test Time Test Comments Results Result Sour e Comments XR HAND 3+ VW 2019-12-11 FINDINGS/IMPRESSION Un iversity of LEFT 6 : No ?acute [facility] 19:19:32 fracture or Branch dislocation. Soft tissue laceration at the index finger. Mild to moderate osteoarthrosis at the IP, STT and first CMC joints. Soft tissue swelling at the dorsal aspect of the wrist. Osteopenia. EXAM: XR HAND 3+ VW LEFT HISTORY: 69 years-old Female laceration to left thumb and index finger withhedge zachariah COMPARISON: None. [facility], Radiant Results Inft User - 12/26/2019 2:20 PM CDTEXAM: XR HAND 3+ VW LEFTHISTORY: 69 years-old Female laceration to left thumb and index finger withhedge zachariah COMPARISON: None.IMPRESSIONFIND INGS/IMPRESSION:No acute fracture or dislocation. Soft tissue laceration at the index finger.Mild to moderate osteoarthrosis at the IP, STT and first CMC joints.Soft tissue swelling at the dorsal aspect of the wrist.Osteopenia.
[2023-05-15] MEDS ORDERED: PHENAZOPYRIDINE 100MG TAB PO ONE (06:04)
[2023-05-15] MEDS ORDERED: FENTANYL CITR 100 MCG/2 ML ONE (06:05)
[2023-05-15] MEDS ORDERED: CEFTRIAXONE 1000 MG/VIAL ONE (06:06)
[2023-05-15] MEDS ORDERED: NA CHLORIDE 0.9% 1,000 ML ONE (06:06)
[2023-05-15] MEDS ORDERED: ONDANSETRON 4 MG/2 ML VIAL ONE (06:08)
[2023-05-15 06:18] LABS: Absolute Lymphocytes (CBC) 2.4 K/uL (0.7-4.9); Hematocrit 34.4 % (36.0-45.0); Lymphocytes % 24.5 % (15.3-44.8); MCV 86.4 fL (80-100); MPV 7.8 fL (7.6-11.3); RBC Red Blood Cell Count 3.98 M/uL (3.86-4.86)
[2023-05-15 06:20] LABS: Specific Gravity 1.024 (1.005-1.030); Urine Bacteria <20 /HPF (<20); Urine Bilirubin NEGATIVE (Negative); Urine Blood 2+ (Negative); Urine Clarity Extremely Turbid (Clear); Urine Color Light-Yellow (Yellow); Urine Glucose NEGATIVE (Negative); Urine Mucus Slight /HPF (None Seen); Urine Protein 1+ (Negative); Urine RBC >50 /HPF (None Seen); Urine Urobilinogen Normal (Normal); Urine pH 5.5 (5.0-7.0)
[2023-05-15 06:34] LABS: Albumin 3.5 g/dL (3.4-5.0); Bilirubin Total 0.5 mg/dL (0.2-1.0); Potassium 3.9 mEq/L (3.5-5.1); Protein, Total 6.8 g/dL (6.4-8.2)
[2023-05-15] MEDS ORDERED: SMZ./TMP. 800/160 MG TABLET ONE (07:02)
--- NOTE | 2023-05-15 07:46 | RAD REPORT ---
EXAM DESCRIPTION: CT - Stone Protocol - 05/15/2023 6:53 am CLINICAL HISTORY: Flank pain. ABD PAIN COMPARISON: Stone Protocol dated 07/12/2021 TECHNIQUE: Axial images were obtained without oral or IV contrast. Lack of contrast limits solid org an and vascular assessment. The [id number] spans the entirety of the system partially obscuring uppermost abdomen and lung bases. Coronal reformatted images were obtained and reviewed. All CT scans are performed using dose optimization technique as appropriate and may include automated exposure control or mA/KV adjustment according to patient size. FINDINGS: 8 mm nodule is seen in the right lower lobe, likely benign. Imaged portions of the liver and spleen show no suspicious findings on non-contrast imaging.Cholecyst ectomy clips. The pancreas and adrenal glands are normal. No pathologic lymphadenopathy in the abdome n or pelvis. 4 mm stone at the left UVJ is present without left-sided hydronephrosis. Multiple small caliceal ston es bilaterally. No bowel obstruction, free air, free fluid or abscess. Sigmoid diverticulosis coli without diverticul itis.Nonvisualized appendix. Moderately severe lower lumbar degenerative changes. IMPRESSION: 4 mm left UVJ stone is present without significant hydronephrosis. Additional bilateral caliceal calculi. Sigmoid diverticulosis coli without diverticulitis. Moderate stool throughout the colon.
--- NOTE | 2023-05-15 08:19 | ER ---
Nurse's Notes [facility] Name: Smita Covarrubias Age: 72 yrs Sex: Female : 1950 Arrival Date: 05/15/2023 Time: 04:59 Bed 7 Private MD: Glenna Butler C Diagnosis: Calculus of ureter Presentation: 05/15 05:12 Chief complaint: Patient states: urinary tract symptoms of bladder spasms pain of 7 pf1 with pressure, frequency and urgency sensation,onset 1 week ago, started taking Cipro on Thursday. 05:12 Coronavirus screen: Vaccine status: Patient reports receiving the 2nd dose of the covid pf1 vaccine. 3 doses of pfizer Client denies travel out of the [place] in the last 14 days. At this time, the client does not indicate any symptoms associated with coronavirus-19. Ebola Screen: Patient negative for fever greater than or equal to 101.5 degrees Fahrenheit, and additional compatible Ebola Virus Disease symptoms. Initial Sepsis Screen: Does the patient meet any 2 criteria? No. Patient's initial sepsis screen is negative. Does the patient have a suspected source of infection? Yes: Dysuria/Frequency/Urgency/UTI. Risk Assessment: Do you want to hurt yourself or someone else? Patient reports no desire to harm self or others. 05:12 Method Of Arrival: Ambulatory pf1 05:12 Acuity: SHAHAB 3 pf1 07:16 Onset of symptoms was May 15, 2023. kd3 Historical: - Allergies: 05:44 Trulicity; pf1 - PMHx: 05:45 Arthritis; Diabetes - NIDDM; Glaucoma; Hypertension; melanoma; kidney stones; sepsis pf1 2013; Hypercholesterolemia; - PSHx: 05:45 Appendectomy; section; Tonsillectomy; Total abdominal hysterectomy; right knee pf1 surgery; Lithotripsy; Cholecystectomy; - Immunization history:: Adult Immunizations up to date, Last tetanus immunization: < 5 years ago Flu vaccine is up to date. - Social history:: Smoking status: Patient denies any tobacco usage or history of. Patient/guardian denies using alcohol, street drugs. - Family history:: not pertinent. Screenin:16 [facility] ED Fall Risk Assessment (Adult) History of falling in the last 3 months, kd3 including since admission No falls in past 3 months (0 pts) Confusion or Disorientation No (0 pts) Intoxicated or Sedated No (0 pts) Impaired Gait No (0 pts) Mobility Assist Device Used No (0 pt) Altered Elimination No (0 pt) Score/Fall Risk Level 0 - 2 = Low Risk Maintained a safe environment. Abuse screen: Denies threats or abuse. Denies injuries from another. Nutritional screening: No deficits noted. Tuberculosis screening: No symptoms or risk factors identified. Assessment: 07:14 General: Appears uncomfortable, Behavior is calm, cooperative. Pain: Complains of pain kd3 in suprapubic area. Neuro: Level of Consciousness is awake, alert, obeys commands, Oriented to person, place, time, situation. Cardiovascular: Patient's skin is warm and dry. Respiratory: Airway is patent Trachea midline Respiratory effort is even, unlabored, Respiratory pattern is regular, symmetrical. 07:53 Reassessment: Patient appears in no apparent distress at this time. No changes from ko1 previously documented assessment. Vital Signs: 05:12 BP 140 / 77; Pulse 78; Resp 16; Temp 97.9; Pulse Ox 100% on R/A; Weight 74.84 kg; pf1 Height 5 ft. 6 in. ; Pain 7/10; 06:21 BP 124 / 71; Pulse 67; Resp 19; Pulse Ox 100% on R/A; kd3 07:15 BP 122 / 63; Pulse 70; Resp 16; Pulse Ox 100% on R/A; kd3 08:28 BP 122 / 65; Pulse 68; Resp 16; Pulse Ox 98% ; ko1 05:12 Body Mass Index 26.63 (74.84 kg, 167.64 cm) pf1 05:12 Pain Scale: Adult pf1 ED Course: 05:03 Patient arrived in ED. am2 05:03 Glenna Butler MD is Private Physician. am2 05:13 Gordo De La Vega MD is Attending Physician. leonard 05:25 Kaylen Barnes, CORRINA is Primary Nurse. kd3 05:44 Triage completed. pf1 06:13 Comprehensive Metabolic Panel Sent. pf1 06:13 CBC with Diff Sent. pf1 06:55 CT Stone Protocol In Process Unspecified. EDMS 07:16 Arm band placed on right wrist. kd3 07:16 Patient has correct armband on for positive identification. Placed in gown. Bed in low kd3 position. Call light in reach. Provided Education on: . 07:27 Attending Physician role handed off by Gordo De La Vega MD rt 07:27 Tone Nam MD is Attending Physician. rt 08:18 Glenna Butler MD is Referral Physician. rt 08:18 Darshan Almanzar MD is Referral Physician. rt 08:28 No provider procedures requiring assistance completed. IV discontinued, intact, ko1 bleeding controlled, No redness/swelling at site. Pressure dressing applied. Administered Medications: 06:10 Drug: Phenazopyridine PO 200 mg Route: PO; pf1 06:12 Drug: Rocephin IV 1 grams Route: IV; Rate: per protocol; Site: right antecubital; pf1 06:13 Drug: NS 0.9% IV 1000 ml Route: IV; Rate: 1 bolus; Site: right antecubital; pf1 08:36 Follow up: Response: No adverse reaction; IV Status: Completed infusion; IV Intake: dd1 1000ml 06:13 Drug: fentaNYL (PF) IVP 25 mcg Route: IVP; Site: right antecubital; pf1 06:13 Drug: Ondansetron IVP 4 mg Route: IVP; Site: right antecubital; pf1 06:55 Drug: Trimethoprim-Sulfamethoxazole PO (160 mg-800 mg (DS) 1 tablet Route: PO; kd3 Medication: 07:16 VIS not applicable for this client. kd3 Intake: 08:36 IV: 1000ml; Total: 1000ml. dd1 Outcome: 08:18 Discharge ordered by MD. rt 08:28 Discharged to home ambulatory. ko1 08:28 Condition: good 08:28 Discharge instructions given to patient, Instructed on discharge instructions, follow up and referral plans. medication usage, Demonstrated understanding of instructions, follow-up care, medications, Prescriptions given X 2. 08:37 Patient left the ED. dd1 Signatures: Dispatcher [employer] EDMS Gordo De La Vega MD MD cha Moreno, Amanda am2 Kaylen Barnes RN RN kd3 Kaitlynn Rosario RN RN ko1 Tone Nam MD MD rt Bethanie More RN RN pf1 Ehsan Juarez RN RN dd1 Corrections: (The following items were deleted from the chart) 08:31 08:28 Discharge instructions given to patient, Instructed on discharge instructions, ko1 follow up and referral plans. Demonstrated understanding of instructions, follow-up care, ko1
--- NOTE | 2023-05-15 08:19 | EDPHYS ---
Physician Documentation [facility] Name: Smita Covarrubias Age: 72 yrs Sex: Female : 1950 Arrival Date: 05/15/2023 Time: 04:59 Bed 7 Private MD: Glenna Butler C ED Physician Tone Nam HPI: 05/15 05:48 This 72 yrs old Female presents to ER via Ambulatory with complaints of leonard Urinary Problem, spasms/pain. 05:48 The patient presents with abdominal pain in the lower abdomen. Onset: The leonard symptoms/episode began/occurred 2 day(s) ago. The patient presents with urinary symptoms, frequency, hesitancy. Onset: The symptoms/episode began/occurred 3 day(s) ago. Modifying factors: The symptoms are alleviated by nothing, the symptoms are aggravated by nothing. Associated signs and symptoms: The patient has no apparent associated signs or symptoms. Severity of symptoms: At their worst the symptoms were mild, in the emergency department the symptoms are unchanged. The patient is not sexually active. The symptoms are described as crampy. Severity of pain: At its worst the pain was moderate in the emergency department the pain is unchanged. Historical: - Allergies: 05:44 Trulicity; pf1 - PMHx: 05:45 Arthritis; Diabetes - NIDDM; Glaucoma; Hypertension; melanoma; kidney stones; sepsis pf1 2013; Hypercholesterolemia; - PSHx: 05:45 Appendectomy; section; Tonsillectomy; Total abdominal hysterectomy; right knee pf1 surgery; Lithotripsy; Cholecystectomy; - Immunization history:: Adult Immunizations up to date, Last tetanus immunization: < 5 years ago Flu vaccine is up to date. - Social history:: Smoking status: Patient denies any tobacco usage or history of. Patient/guardian denies using alcohol, street drugs. - Family history:: not pertinent. ROS: 05:48 Constitutional: Negative for fever, chills, and weight loss, Eyes: Negative for injury, leonard pain, redness, and discharge, ENT: Negative for injury, pain, and discharge, Neck: Negative for injury, pain, and swelling, Cardiovascular: Negative for chest pain, palpitations, and edema, Respiratory: Negative for shortness of breath, cough, wheezing, and pleuritic chest pain, Back: Negative for injury and pain, : Negative for injury, bleeding, discharge, and swelling, MS/Extremity: Negative for injury and deformity, Skin: Negative for injury, rash, and discoloration, Neuro: Negative for headache, weakness, numbness, tingling, and seizure, Psych: Negative for depression, anxiety, suicide ideation, homicidal ideation, and hallucinations, Allergy/Immunology: Negative for hives, rash, and allergies, Endocrine: Negative for neck swelling, polydipsia, polyuria, polyphagia, and marked weight changes, Hematologic/Lymphatic: Negative for swollen nodes, abnormal bleeding, and unusual bruising. 05:48 Abdomen/GI: Positive for abdominal pain, of the suprapubic area. Exam: 05:48 Constitutional: This is a well developed, well nourished patient who is awake, alert, leonard and in no acute distress. Head/Face: Normocephalic, atraumatic. Eyes: Pupils equal round and reactive to light, extra-ocular motions intact. Lids and lashes normal. Conjunctiva and sclera are non-icteric and not injected. Cornea within normal limits. Periorbital areas with no swelling, redness, or edema. ENT: Nares patent. No nasal discharge, no septal abnormalities noted. Tympanic membranes are normal and external auditory canals are clear. Oropharynx with no redness, swelling, or masses, exudates, or evidence of obstruction, uvula midline. Mucous membranes moist. Neck: Trachea midline, no thyromegaly or masses palpated, and no cervical lymphadenopathy. Supple, full range of motion without nuchal rigidity, or vertebral point tenderness. No Meningismus. Chest/axilla: Normal chest wall appearance and motion. Nontender with no deformity. No lesions are appreciated. Cardiovascular: Regular rate and rhythm with a normal S1 and S2. No gallops, murmurs, or rubs. Normal PMI, no JVD. No pulse deficits. Respiratory: Lungs have equal breath sounds bilaterally, clear to auscultation and percussion. No rales, rhonchi or wheezes noted. No increased work of breathing, no retractions or nasal flaring. Back: No spinal tenderness. No costovertebral tenderness. Full range of motion. Female : Normal external genitalia. Skin: Warm, dry with normal turgor. Normal color with no rashes, no lesions, and no evidence of cellulitis. MS/ Extremity: Pulses equal, no cyanosis. Neurovascular intact. Full, normal range of motion. Neuro: Awake and alert, GCS 15, oriented to person, place, time, and situation. Cranial nerves II-XII grossly intact. Motor strength 5/5 in all extremities. Sensory grossly intact. Cerebellar exam normal. Normal gait. Psych: Awake, alert, with orientation to person, place and time. Behavior, mood, and affect are within normal limits. 05:48 Abdomen/GI: Inspection: abdomen appears normal, Bowel sounds: normal, Palpation: mild abdominal tenderness, in the suprapubic area, Liver: no appreciated palpable abnormalities, Hernia: not appreciated. Vital Signs: 05:12 BP 140 / 77; Pulse 78; Resp 16; Temp 97.9; Pulse Ox 100% on R/A; Weight 74.84 kg; pf1 Height 5 ft. 6 in. ; Pain 7/10; 06:21 BP 124 / 71; Pulse 67; Resp 19; Pulse Ox 100% on R/A; kd3 07:15 BP 122 / 63; Pulse 70; Resp 16; Pulse Ox 100% on R/A; kd3 08:28 BP 122 / 65; Pulse 68; Resp 16; Pulse Ox 98% ; ko1 05:12 Body Mass Index 26.63 (74.84 kg, 167.64 cm) pf1 05:12 Pain Scale: Adult pf1 MDM: 05:13 Patient medically screened. leonard 05:50 Differential diagnosis: urinary tract infection, bowel obstruction, gastritis, leonard non-specific abd pain, pancreatitis. Data reviewed: vital signs, nurses notes, lab test result(s), radiologic studies, CT scan. Consideration of Admission/Observation Patient was admitted/placed on observation. I considered the following discharge prescriptions or medication management in the emergency department Medications were administered in the Emergency Department. See MAR. Independent interpretation of the following test(s) in the Emergency Department CT Scan: My interpretation is ct stone. Test considered but Not performed: Ultrasound no abd us. Care significantly affected by the following chronic conditions: Diabetes, Hypertension, Obesity, glacauma, arthritis. 08:22 ED course: I assumed care at shift change. Patient with hematuria without bacteriuria, rt found to have 4 mm stone without hydroureteronephrosis. Spoke with the patient's PCP, recommends tamsulosin to be started, patient stable for outpatient care. The culture results from the clinic have not yet returned. We will send for an urine culture. At this time, I have a lower suspicion for an infected ureterolithiasis and patient does not need transfer for emergent urologic evaluation.. 05/15 05:48 Order name: CBC with Diff; Complete Time: 06:27 leonard 05/15 05:48 Order name: Comprehensive Metabolic Panel; Complete Time: 06:54 leonard 05/15 05:53 Order name: Urinalysis w/ reflexes; Complete Time: 06:27 pf1 05/15 06:23 Order name: Urine Culture EDMS 05/15 05:48 Order name: CT Stone Protocol; Complete Time: 07:48 [facility] Administered Medications: 06:10 Drug: Phenazopyridine PO 200 mg Route: PO; pf1 06:12 Drug: Rocephin IV 1 grams Route: IV; Rate: per protocol; Site: right antecubital; pf1 06:13 Drug: NS 0.9% IV 1000 ml Route: IV; Rate: 1 bolus; Site: right antecubital; pf1 08:36 Follow up: Response: No adverse reaction; IV Status: Completed infusion; IV Intake: dd1 1000ml 06:13 Drug: fentaNYL (PF) IVP 25 mcg Route: IVP; Site: right antecubital; pf1 06:13 Drug: Ondansetron IVP 4 mg Route: IVP; Site: right antecubital; pf1 06:55 Drug: Trimethoprim-Sulfamethoxazole PO (160 mg-800 mg (DS) 1 tablet Route: PO; kd3 Disposition Summary: 05/15/23 08:18 Discharge Ordered Location: Home rt Problem: new rt Symptoms: have improved rt Condition: Stable rt Diagnosis - Calculus of ureter rt Followup: leonard - With: - When: 2 - 3 days - Reason: Recheck today's complaints, Continuance of care, Re-evaluation by your physician Followup: rt - With: Darshan Almanzar MD - When: 5 - 6 days - Reason: Discharge Instructions: - Discharge Summary Sheet leonard - Kidney Stones rt Forms: - Medication Reconciliation Form rt - Thank You Letter rt - Antibiotic Education rt - Prescription Opioid Use rt - Patient Portal Instructions rt Prescriptions: - acetaminophen-codeine 300-30 mg Oral tablet - take 2 tablets by ORAL route every 6 hours as needed for pain; 18 tablet; rt Refills: 0, Product Selection Permitted - tamsulosin 0.4 mg Oral capsule - take 1 capsule by ORAL route every 24 hours; 21 capsule; Refills: 0, Product rt Selection Permitted Signatures: Dispatcher [employer] Gordo Martinez MD MD cha Doucette, Kyli RN RN kd3 Tone Nam MD MD rt Finley, Pamala, RN RN pf1 Ehsan Juarez RN dd1
[2023-05-15 08:44] VITALS: TEMP 97.9
[2023-05-15 08:49] VITALS: BP 122/65; O2SAT 98
== END 2023-05-15 08:37 | disposition home or self-care (01) ==
LOC: ER 04:59
DX: N20.1 Calculus of ureter (principal); Z87.442 Personal history of urinary calculi; I10 Essential (primary) hypertension; Z88.8 Allergy status to other drugs, medicaments and biological substances
CPT/HCPCS: 96361; 87088; 85025; 81001; 87086; 36415; 80053; 76377; 74176; 96375; 96374; 99284; J3010; J2405; J7030; J0696

== ENCOUNTER 2023-06-29 18:11 | Emergency (ER) | payer OTHER ==
--- OUTSIDE RECORDS SUMMARY | 2023-06-29 18:30 | XMS REPORT | Continuity of Care Document ---
:1950 Author Organization [facility] t Address [address] [facility] [address] [place] [address] Care Team Providers Name Role Phone Emeterio Butler MD Primary Care Physician Emeterio Butler Attending Clinician Unavailable [email or web address]_S Attending Clinician Unavailable Nurse, Adc Pob Immunization Attending Clinician Unavailable Anderson Oneal DO Attending Clinician MINA CABRERA Attending Clinician Unavailable Mina Miller Attending Clinician [email or web address]_S Admitting Clinician Unavailable MINA CABRERA Admitting Clinician Unavailable Payers Payer Name Policy Type Policy Number Effective Date Expiration Date S katy PAYAN (MEDICARE [id number] REPLACEMENT/ADVAN TAGE - PPO) COVID VACCINE [id number] 2020-11-01 00:00:00 ADMIN / TESTING Problems Condition Condition Condition Status Onset Resolution Last Treating Co mments Source Name Details Category Date Date Treatment Clinician Date [id number] Kidney Problem Active Common stones [facility] [id number] Acute Problem Active Common cystitis [facility] without - [facility] hematuria [facility] [id number] Recurrent Problem Active Com mon UTI [facility] [id number] Acute Problem Active Common right [facility] flank pain - [facility] [id number] Suprapubic Problem Active Co mmon pain [facility] [id number] Ureterolit Problem Active Com mon hiasis [facility] Allergies, Adverse Reactions, Alerts Allergy Allergy Status Severity Reaction(s) Onset Inactive Treating Comm ents Source Name Type Date Date Clinician NO KNOWN Drug Active Univers ALLERGIE Class ity of S [facility] Family History Family Member Diagnosis Comments Start Date Stop Date Source Natural brother Diabetes [facility] Natural father Diabetes [facility] Natural mother Cancer [facility] Social History Social Habit Start Date Stop Date Quantity Comments Source History of Tobacco Common [facility] - Use [facility] Gender identity [facility] Alcohol intake 2019-06-30 2019-06-30 Lifetime [facility] 00:00:00 00:00:00 non-drinker Hospital (finding) History of Social 2019-06-30 2019-06-[address] function 00:00:00 00:00:00 Hospital Tobacco use and 2019-06-30 2019-06-30 Smokeless [facility] exposure 00:00:00 00:00:00 tobacco non-user Hospital Sex Assigned At [birth year] [facility] 00:00:00 [facility]:00 [facility] Smoking Status Start Date Stop Date Source Unknown if ever smoked General acute hospital Never Smoker [facility] Medications Ordered Filled Start Stop Current Ordering Indication Dosage Frequency Signature Comments Components Source Medication Medication Date Date Medication? Clinician (SIG) Name Name Bactrim DS Bactrim DS 2021- No 1{table BID Bactrim DS 800-160 MG 800-160 MG 10-1814 t} 800-160 MG 00:00: 00:00 00 :00 Estradiol Estradiol 2020-10 No Estradiol 0.1 MG/GM 0.1 MG/GM 2-15 0.1 MG/GM 00:00: 00 Estradiol Estradiol 2020-10 No Estradiol 0.1 MG/GM 0.1 MG/GM 2-15 0.1 MG/GM 00:00: 00 Estradiol Estradiol 2020-10 No Estradiol 0.1 MG/GM 0.1 MG/GM 2-15 0.1 MG/GM 00:00: 00 tetanus-dip 2020- No .5mL 0.5 mL, Un evert htheria 12-25 Intramuscu ity o f toxoids 19:30: 18:27 lar, ONCE, Inderjit as (TDVAX) 2-2 00 :00 1 dose, Medic al Lf unit/0.5 Mon Branch mL 12/26/19 at injection 1430, 0.5 mL Routine cephALEXin 2020- No [id number] 500mg Take 1 Univers (KEFLEX) 12-25 capsule by ity of 500 mg 00:00: 04:59 mouth 3 [place] capsule 00 :00 (three) Medical times Branch daily for 3 days. meloxicam Yes TAKE 1 M ethodi (MOBIC) 15 07-[address] mg tablet 00:00: MOUTH [facility]osp[facility] 00 EVERY DAY l meloxicam Yes TAKE 1 M ethodi (MOBIC) 15 07-[address] mg tablet 00:00: MOUTH Hospita 00 EVERY DAY l losartan Yes 25mg QD Take 25 [...] metFORMIN Yes TAKE 1 Method i (GLUCOPHAGE 9-[address] ) 1,000 mg 00:00: MOUTH 2 Hosp yoon tablet 00 TIMES A l DAY WITH MORNING MEAL AND WITH THE EVENING MEAL glipiZIDE Yes TAKE 1 Method i (GLUCOTROL) 9-[address] 5 MG 24 hr 00:00: MOUTH 2 Hosp yoon tablet 00 TIMES A l DAY WITH BREAKFAST AND SUPPER allopurinol Yes 300mg QD Take 300 M ethodi (ZYLOPRIM) 9-[address] 300 MG 00:00: mouth [...] Yes 1000ug QD Take 1,000 Methodi min - mcg by st (VITAMIN 00:00: mouth Hospita [...] metFORMIN Yes TAKE 1 Method i (GLUCOPHAGE 9- TABLET BY st ) 1,000 mg 00:00: MOUTH 2 Hosp yoon tablet 00 TIMES A l DAY WITH MORNING MEAL AND WITH THE EVENING MEAL glipiZIDE Yes TAKE 1 Method i (GLUCOTROL) 9-[address] 5 MG 24 hr 00:00: MOUTH 2 Hosp yoon tablet 00 TIMES A l DAY WITH BREAKFAST AND SUPPER allopurinol Yes 300mg QD Take 300 M ethodi (ZYLOPRIM) 9-[address] 300 MG 00:00: mouth Hospita tablet 00 daily. l LYRICA 50 2019-0 Yes 50mg Q.5D Take 50 mg Me thodi mg capsule 05-[address] 00:00: (two) Hospita 00 times a l day. LYRICA 50 2019-0 Yes 50mg Q.5D Take 50 mg Me [...] Vitamin B12 Vitamin B12 No Vitamin B12 Magnesium Magnesium No 2{capsu QD Magnesium Oxide [...] 5 MG t_with_ ER 5 MG food} Immunizations Ordered Filled Immunization Date Status Comments [facility] e Immunization Name Name SARS-COV-2 COVID-19 2021-06-21 Completed Unive rsity of PFIZER VACCINE 00:00:00 [facility] Covid-19 Vaccine 2020-11-[address] [facility] MRNA (PF) 12yr+ 00:00:00 Medical C enter (Pfizer/BioNTech)(I MM601) Covid-19 Vaccine 2020-11-[address] [facility] MRNA (PF) 12yr+ 00:00:00 Medical C enter (Pfizer/BioNTech)(I MM601) Covid-19 Vaccine 2020-11-[address] [facility] MRNA (PF) 12yr+ 00:00:00 Medical C enter (Pfizer/BioNTech)(I MM601) Covid-19 Vaccine 2020-11-[address] [facility] MRNA (PF) 12yr+ 00:00:00 Medical C enter (Pfizer/BioNTech)(I MM601) Td 2019-12-26 Completed University of 00:00:00 [facility] Td 2019-12-26 Completed University of 00:00:00 [facility] Vital Signs Vital Name Observation Time Observation Value Comments Source height 2021-10-28 16:00:00 66 [in_i] [facility] weight 2021-10-28 16:00:00 190 [lb_av] Common [facility] temperature 2021-10-28 16:00:00 97.3 [degF] Common [facility] bmi 2021-10-28 16:00:00 30.66 kg/m2 [facility] oximetry 2021-10-28 16:00:00 98 % [facility] respiratory rate 2021-10-28 16:00:00 16 /min Comm on [facility] blood pressure 2021-10-28 16:00:00 133 mm[Hg] Common [facility] - systolic [facility] blood pressure 2021-10-28 16:00:00 71 mm[Hg] Common [facility] - diastolic [facility] height 2021-10-18 11:00:00 66 [in_i] Common [facility] weight 2021-10-18 11:00:00 195.6 [lb_av] [facility] temperature 2021-10-18 11:00:00 96.7 [degF] Common [facility] bmi 2021-10-18 11:00:00 31.57 kg/m2 [facility] oximetry 2021-10-18 11:00:00 98 % Common [facility] blood pressure 2021-10-18 11:00:00 150 mm[Hg] Common [facility] - systolic [facility] blood pressure 2021-10-18 11:00:00 81 mm[Hg] Common [facility] - diastolic [facility] height 2021-09-25 11:20:00 66 [in_i] Common [facility] weight 2021-09-25 11:20:00 195.2 [lb_av] Common [facility] temperature 2021-09-25 11:20:00 97.8 [degF] Common [facility] bmi 2021-09-25 11:20:00 31.5 kg/m2 Common [facility] oximetry 2021-09-25 11:20:00 98 % Common [facility] blood pressure 2021-09-25 11:20:00 128 mm[Hg] Common [facility] - systolic [facility] blood pressure 2021-09-25 11:20:00 73 mm[Hg] Common [facility] - diastolic [facility] Systolic blood 2019-12-26 18:00:00 138 mm[Hg] [facility] Diastolic blood 2019-12-26 18:00:00 90 mm[Hg] [facility]ive [facility] Heart rate 2019-12-26 18:00:00 68 /min Universi [facility] Respiratory rate 2019-12-26 18:00:00 20 /min Univ ersity of [facility] Oxygen saturation in 2019-12-26 18:00:00 97 /min University of Arterial blood by [facility] Pulse oximetry Branch Body temperature 2019-12-26 16:56:00 37.28 Khushi [facility] ersity [facility] Body weight 2019-12-26 16:56:00 83[facility]462 [facility] 2019-12-26 18:00:00 138 mm[Hg] [facility] Diastolic blood 2019-12-26 18:00:00 90 mm[Hg] Unive rsity of pressure [facility] Heart rate 2019-12-26 18:00:00 68 /min Universi [facility] Respiratory rate 2019-12-26 18:00:00 20 /min Univ ersity of [facility] Oxygen saturation in 2019-12-26 18:00:00 97 /min University of Arterial blood by [facility] Pulse oximetry Branch Body temperature 2019-12-26 16:56:00 37.28 Khushi [facility] ersity [facility] Body weight 2019-12-26 16:56:[address] [facility] Procedures Procedure Date / Time Performed Performing Clinician Josy sylvester SARS-COV-2 COVID-19 2021-06-21 19:16:01 [facility] Unassigned, [facility],IM Name [facility] (PFIZER) XR HAND 3+ VW LEFT 2019-12-26 18:12:52 Mina Cabrera [facility] NOTICE OF PRIVACY 2019-12-26 16:47:28 Doctor Unassigned, No [facility] [place] PRACTICES Name [facility] Plan of Care Planned Activity Planned Date Details Comments Source Future Scheduled 2029-12-25 DTAP/TDAP/TD VACCINES [facility] 00:00[facility]00 (2 - Td or Tdap) [code Medic al Center = DTAP/TDAP/TD VACCINES (2 - Td or Tdap)] Future Scheduled 2029-12-25 DTAP/TDAP/TD VACCINES [facility] 00:00:00 (2 - Td or Tdap) [code Medic al Center = DTAP/TDAP/TD VACCINES (2 - Td or Tdap)] Future Scheduled 2023-06-29 [facility] Test 18:28:45 malignant neoplasm of colon (procedure) [code = 014170337] Future Scheduled 2023-06-29 [facility] Test 18:28:45 malignant neoplasm of colon (procedure) [code = 172700407] Future Scheduled 2023-06-29 [facility] Test 18:28:45 malignant neoplasm of colon (procedure) [code = 608027724] Future Scheduled 2023-06-29 COVID-19 [facility]ACCINE (#[facility] 18:28:45 [code = COVID-19 VACCINE (#1)] Future Scheduled 2023-06-29 BREAST CANCER [facility] Test 18:28:45 SCREENING [code = BREAST CANCER SCREENING] Future Scheduled 2023-06-29 [facility] Test 18:28:45 malignant neoplasm of colon (procedure) [code = 794100946] Future Scheduled 2023-06-29 [facility] Test 18:28:45 malignant neoplasm of colon (procedure) [code = 340004787] Future Scheduled 2023-06-29 SHINGLES VACCINES ([facility] 18:28:45 of 2) [code = SHINGLES VACCINES (1 of 2)] Future Scheduled 2023-06-29 65+ [facility]UMOCOCCAL [facility] Test 18:28:45 VACCINE (1 - PCV) [code = 65+ PNEUMOCOCCAL VACCINE (1 - PCV)] Future Scheduled 2023-06-29 INFLUENZA VACCINE (#1) [facility] 18:28:45 [code = INFLUENZA VACCINE (#1)] Future Scheduled 2023-06-12 Influenza Vaccine (#1) [facility] 00:[facility]00 [code = Influenza Medical Ce nter Vaccine (#1)] Future Scheduled 2023-06-12 Influenza Vaccine (#1) [facility] 00:00:00 [code = Influenza Medical Ce nter Vaccine (#1)] Future Scheduled 2023-05-15 [facility] Test 05:02:12 malignant neoplasm of colon (procedure) [code = 315520157] Future Scheduled 2023-05-15 [facility] Test 05:02:12 malignant neoplasm of colon (procedure) [code = 458816014] Future Scheduled 2023-05-15 [facility] Test 05:02:12 malignant neoplasm of colon (procedure) [code = 717517138] Future Scheduled 2023-05-15 [facility] 05:02:12 [code = COVID-19 VACCINE (#1)] Future Scheduled 2023-05-15 BREAST CANCER [facility] Test 05:02:12 SCREENING [code = BREAST CANCER SCREENING] Future Scheduled 2023-05-15 [facility] Test 05:02:12 malignant neoplasm of colon (procedure) [code = 178228505] Future Scheduled 2023-05-15 [facility] Test 05:02:12 malignant neoplasm of colon (procedure) [code = 722146304] Future Scheduled 2023-05-15 SHINGLES VACCINES (1 [facility] Test 05:02:12 of 2) [code = SHINGLES VACCINES (1 of 2)] Future Scheduled 2023-05-15 65+ [facility]OCOCCAL [facility] Test 05:02:12 VACCINE (1 - PCV) [...] RISK Medical C enter SCREENING] Future Scheduled 2022-10-[address] [...] - Booster for Pfizer series)] Future Scheduled 2021-01-17 COVID-19 VACCINE (3 - [facility] 00:[facility]:00 Booster for Pfizer Medical C enter series) [code = COVID-19 VACCINE (3 - Booster for Pfizer series)] Future Scheduled 2017 PNEUMOCOCCAL 65+ [facility] Test 00:00:00 (1 - PCV) [code = Medical Ce nter PNEUMOCOCCAL 65+ YRS (1 - PCV)] Future Scheduled 2017 PNEUMOCOCCAL 65+ YRS [facility] Test 00:00:00 (1 - PCV) [code = Medical Ce nter PNEUMOCOCCAL 65+ YRS (1 - PCV)] Future Scheduled 2002 SHINGLES VACCINES ([address] [facility] Test 00:00:00 of 2) [code = SHINGLES Medic al Center VACCINES (1 of 2)] Future Scheduled 2002 SHINGLES VACCINES ([address] [facility] Test 00:00:00 of 2) [code = SHINGLES Medic al Center VACCINES (1 of 2)] Future Scheduled 1970 HEPATITIS C SCREENING [facility] 00:00:00 [code = HEPATITIS C Medical Center SCREENING] Future Scheduled 1970 HEPATITIS C SCREENING [facility] 00:00:00 [code = HEPATITIS C Medical Center SCREENING] Future Scheduled [address] [facility] Test 00:00:00 Counseling and Medical Cente r Screening (12+) [code = Tobacco Cessation Counseling and Screening (12+)] Future Scheduled [address] [facility] Test 00:00:00 Counseling and Medical Cente r Screening (12+) [code = Tobacco Cessation Counseling and Screening (12+)] Future Scheduled 1950 Sigmoidoscopy [code = [facility] 00:00:00 Sigmoidoscopy] Medical Cente r Future Scheduled [address] [facility] Test 00:00:00 malignant neoplasm of Medica l Center breast (procedure) [code = 625632261] Future Scheduled [address] [facility] Test 00:00:00 (combo) [code = CT Medical C enter Colonography (combo)] Future Scheduled [address] [facility] Test 00:00:00 malignant neoplasm of Medica l Center colon (procedure) [code = 002796274] Future Scheduled [address] [facility] Test 00:00:00 malignant neoplasm of Medica l Center colon (procedure) [code = 072900648] Future Scheduled 1950 DXA SCAN [code = DXA [facility] Test 00:00:00 SCAN] Medical Center Future Scheduled [address] [facility] Test 00:00:00 malignant neoplasm of Medica l Center colon (procedure) [code = 452450090] Future Scheduled [address] [facility] Test 00:00:00 malignant neoplasm of Medica l Center colon (procedure) [code = 943181331] Future Scheduled [address] [facility] Test 00:00:00 malignant neoplasm of Medica l Center breast (procedure) [code = 872811754] Future Scheduled [address] [facility] Test 00:00:00 (combo) [code = CT Medical C enter Colonography (combo)] Future Scheduled [address] [facility] Test 00:00:00 malignant neoplasm of Medica l Center colon (procedure) [code = 136637003] Future Scheduled [address] [facility] Test 00:00:00 [facility] (procedure) [code = 846236180] Future Scheduled 1950 DXA SCAN [code = DXA [facility] Test 00:00:00 SCAN] [facility] Future Scheduled [address] [facility] Test 00[facility]00:00 [facility] colon (procedure) [code = 826897348] Future Scheduled [address] [facility] Test 00:00:00 [facility] colon (procedure) [code = 071066194] Future Scheduled 1950 Sigmoidoscopy [code = [facility] Test 00:00:00 Sigmoidoscopy] [facility] Encounters Start End Encounter Admission Attending Care Care Encounter Source Date/Time Date/Time Type Type Clinicians Facility Department ID 2023-05-20 Outpatient Butler, STLMLC STLC [id number] Common 09:47:00 Emeterio [id number] [facility] 2022-05-07 Outpatient Butler, STLMLC STLC [id number] Common 13:09:01 Emeterio [id number] [facility] 2021-11-06 Outpatient Butler, STLMLC STLC [id number] Common 14:25:16 Emeterio [id number] [facility] 2021-11-06 Outpatient Butler, STLC STLC [id number] Common 13:53:06 Emeterio [id number] [facility] 2023-05-27 2023-05-27 Outpatient GC_GCBZW_Ka PRIV PRIV [id number] [facility] 00:00:00 00:00:00 diyala_S [id number] Medic al 2023-05-11 2023-05-11 Outpatient GC_GCBZW_Ka PRIV PRIV [id number] [facility] 00:00:00 00:00:00 diyala_S [id number] Medic al 2023-05-11 2023-05-11 Outpatient GC_GCBZW_Ka PRIV PRIV [id number] [facility] 00:00:00 00:00:00 diyala_S [id number] Medic al 2021-10-28 2021-10-28 (PROC) STLMLC STLMLC [id number] Co mmon 00:00:00 00:00:00 Procedure Spir it - [facility] 2021-10-18 2021-10-18 OFFICE STLMLC STLMLC [id number] Co mmon 00:00:00 00:00:00 VISIT Spirit ESTAB PT - CHI LEVEL 4 [facility] 2021-09-25 2021-09-25 OFFICE STLMLC STLMLC [id number] Co mmon 00:00:00 00:00:00 VISIT EST Spir it PT LEVEL 3 - [facility] 2021-06-21 2021-06-21 Imm/Inj Nurse, Ryder Pob Immunization [facility] [id number] Univers 14:14:55 14:15:06 Visit Anderson Oneal [id number] .10 edward [facility] [id number] [facility] [id number] Sd dical [address] 2020-11-22 2020-11-22 Outpatient EL [facility] [id number] [facility] 00:00:00 00:00:00 2020-11-01 2020-11-01 Outpatient EL [facility] [id number] [facility] 00:00:00 00:00:00 2019-12-26 2019-12-26 Emergency X MINA CABRERA [facility] ERT [id number] Univers 11:57:48 15:27:00 ity [facility] 2019-12-26 2019-12-26 Emergency DeborahMina [facility] [id number] Univers 11:57:48 15:27:00 T Ady [id number] i [place] [id number] [facility] [id number] [address] 2019-12-26 2019-12-26 Emergency Mina Cabrera [facility] [id number] 11:57:48 15:27:00 T Ady [id number] [place] [id number] [place] [id number] Results Test Description Test Time Test Comments Results Result [facility] e Comments XR HAND 3+ VW 2019-12-11 FINDINGS/IMPRESSION Un iversity of LEFT 6 : No ?acute [facility] 19:19:32 fracture or Branch dislocation. Soft tissue [...]
--- NOTE | 2023-06-29 19:32 | RAD REPORT ---
EXAM DESCRIPTION: CT - Abdomen Pelvis Wo Contrast - 06/29/2023 6:41 pm CLINICAL HISTORY: FLANK PAIN COMPARISON: [facility] Protocol dated 05/15/2023; [facility] Protocol dated 07/12/2021; [facility] Protocol dated 12/09; CT ABDOMEN PELVIS WO CONTRAST dated 01/23/2014 TECHNIQUE: Thin cut axial CT imaging of the abdomen and pelvis was performed without IV contrast. Mu ltiplanar reformats were generated and reviewed. All CT scans are performed using dose optimization technique as appropriate and may include automated exposure control or mA/KV adjustment according to patient size. FINDINGS: No suspicious findings in the lung bases. The liver, spleen, and pancreas show no suspicious findings. Gallbladder was surgically removed Symmetric renal contour, without suspicious parenchymal findings within limits of noncontrast techniq ue. Mild left hydronephrosis and proximal hydroureter. 5 millimeter obstructing calculus along the pr oximal left ureter. Other bilateral nonobstructing renal calculi not exceeding 3 millimeter. No dilated bowel loops or bowel wall thickening. No free air, free fluid or inflammatory stranding. N o hernia, mass or bulky lymphadenopathy. The urinary bladder is suboptimally distended limiting evalu ation. No suspicious bony findings. IMPRESSION: Mild left hydronephrosis and proximal hydroureter secondary to [address] calculus. Other small nonobstructing bilateral renal calculi. The findings were communicated to Dr. Andrews on 06/29/2023 at 19:27 hours.
[2023-06-29] MEDS ORDERED: ONDANSETRON 4 MG/2 ML VIAL ONE ×2 (19:46→20:21)
[2023-06-29] MEDS ORDERED: MORPHINE 4 MG/ML SYR ONE ×2 (19:46→20:21)
[2023-06-29] MEDS ORDERED: NA CHLORIDE 0.9% 1,000 ML ONE ×2 (19:46→21:01)
[2023-06-29 19:48] LABS: Lymphocytes % 10.1 % (15.3-44.8); MPV 7.8 fL (7.6-11.3); Platelets 207 thou/uL (152-406); RBC Red Blood Cell Count 4.41 M/uL (3.86-4.86)
[2023-06-29 20:06] LABS: Albumin 3.9 g/dL (3.4-5.0); Bilirubin Total 0.5 mg/dL (0.2-1.0); Potassium 4.3 mEq/L (3.5-5.1); Protein, Total 7.5 g/dL (6.4-8.2)
[2023-06-29 20:15] LABS: Specific Gravity 1.024 (1.005-1.030); Urine Bacteria 20-50 /HPF (<20); Urine Bilirubin NEGATIVE (Negative); Urine Blood 3+ (OVER) (Negative); Urine Clarity Extremely Turbid (Clear); Urine Color Yellow (Yellow); Urine Glucose 3+ (Negative); Urine Mucus Slight /HPF (None Seen); Urine Protein 2+ (Negative); Urine RBC >50 /HPF (None Seen); Urine Urobilinogen Normal (Normal); Urine pH 5.5 (5.0-7.0)
[2023-06-29] MEDS ORDERED: CEFTRIAXONE 1000 MG/VIAL ONE (21:00)
[2023-06-29] MEDS ORDERED: KETOROLAC 30 MG/ML INJ ONE (21:00)
--- NOTE | 2023-06-29 21:02 | EDPHYS ---
Physician Documentation [facility] Name: Smita Covarrubias Age: 72 yrs Sex: Female : 1950 Arrival Date: 06/29/2023 Time: 18:11 Bed IW10 Private MD: Glenna Kwon C ED Physician Levy Montano HPI: 06/29 19:33 This 72 yrs old Female presents to ER via Ambulatory with complaints of Possible Kidney cp3 Stone, Nausea. 19:33 the patient is a 72 year old female with history of renal stones who presents to the ed cp3 with left flank pain rad to the groin. the patient endorses she is having 10/10 pain starting for the last 4 hours. non radiating pain described as throbbing. the patient endorses nausea without vomiting. the patient denies - fever, chills, dysuria, hematuria. 21:58 Allergies: 05:44Trulicity PMHx: Arthritis; Diabetes - NIDDM; Glaucoma; Hypertension; sp4 melanoma; kidney stones; sepsis 2013; Hypercholesterolemia; PSHx: Appendectomy; section; Tonsillectomy; Total abdominal hysterectomy; right knee surgery; Lithotripsy; Cholecystectomy;. Historical: - Allergies: 18:34 Trulicity; me1 - PMHx: 18:34 Arthritis; Diabetes - NIDDM; Glaucoma; Hypercholesterolemia; Kidney stones; melanoma; me1 sepsis 2013; - PSHx: 18:34 Appendectomy; section; Cholecystectomy; Lithotripsy; right knee surgery; me1 Tonsillectomy; Total abdominal hysterectomy; left knee replacement; - Immunization history:: Adult Immunizations up to date. - Social history:: Smoking status: Patient denies any tobacco usage or history of. - Family history:: not pertinent. ROS: 19:33 Constitutional: Negative for fever, chills, and weight loss, Eyes: Negative for injury, cp3 pain, redness, and discharge, ENT: Negative for injury, pain, and discharge, Neck: Negative for injury, pain, and swelling, Cardiovascular: Negative for chest pain, palpitations, and edema, Respiratory: Negative for shortness of breath, cough, wheezing, and pleuritic chest pain, Abdomen/GI: Negative for abdominal pain, nausea, vomiting, diarrhea, and constipation, MS/Extremity: Negative for injury and deformity, Skin: Negative for injury, rash, and discoloration, Neuro: Negative for headache, weakness, numbness, tingling, and seizure, Psych: Negative for depression, anxiety, suicide ideation, homicidal ideation, and hallucinations, Allergy/Immunology: Negative for hives, rash, and allergies, Endocrine: Negative for neck swelling, polydipsia, polyuria, polyphagia, and marked weight changes, Hematologic/Lymphatic: Negative for swollen nodes, abnormal bleeding, and unusual bruising, 19:33 Abdomen/GI: Positive for abdominal pain, nausea, 19:33 : Positive for flank pain, Exam: 19:33 Constitutional: This is a well developed, well nourished patient who is awake, alert, cp3 and in no acute distress. Head/Face: Normocephalic, atraumatic. Eyes: Pupils equal round and reactive to light, extra-ocular motions intact. Lids and lashes normal. Conjunctiva and sclera are non-icteric and not injected. Cornea within normal limits. Periorbital areas with no swelling, redness, or edema. ENT: Nares patent. No nasal discharge, no septal abnormalities noted. Tympanic membranes are normal and external auditory canals are clear. Oropharynx with no redness, swelling, or masses, exudates, or evidence of obstruction, uvula midline. Mucous membranes moist. Neck: Trachea midline, no thyromegaly or masses palpated, and no cervical lymphadenopathy. Supple, full range of motion without nuchal rigidity, or vertebral point tenderness. No Meningismus. Chest/axilla: Normal chest wall appearance and motion. Nontender with no deformity. No lesions are appreciated. Cardiovascular: Regular rate and rhythm with a normal S1 and S2. No gallops, murmurs, or rubs. Normal PMI, no JVD. No pulse deficits. Respiratory: Lungs have equal breath sounds bilaterally, clear to auscultation and percussion. No rales, rhonchi or wheezes noted. No increased work of breathing, no retractions or nasal flaring. Abdomen/GI: left cva tenderness, no abdominal tenderness, guarding or rebound Back: No spinal tenderness. No costovertebral tenderness. Full range of motion. Female : Normal external genitalia. Skin: Warm, dry with normal turgor. Normal color with no rashes, no lesions, and no evidence of cellulitis. MS/ Extremity: Pulses equal, no cyanosis. Neurovascular intact. Full, normal range of motion. Neuro: Awake and alert, GCS 15, oriented to person, place, time, and situation. Cranial nerves II-XII grossly intact. Motor strength 5/5 in all extremities. Sensory grossly intact. Cerebellar exam normal. Normal gait. Psych: Awake, alert, with orientation to person, place and time. Behavior, mood, and affect are within normal limits. Vital Signs: 18:33 BP 117 / 73; Pulse 86; Resp 18; Temp 98.4(TE); Pulse Ox 100% on R/A; Weight 75.75 kg; me1 Height 5 ft. 6 in. ; Pain 10/10; 20:00 BP 120 / 76; Pulse 68; Resp 15; Pulse Ox 97% on R/A; pf1 21:00 BP 134 / 76; Pulse 72; Resp 16; Pulse Ox 97% on R/A; pf1 22:00 BP 135 / 82; Pulse 65; Resp 18; Pulse Ox 98% ; pf1 23:00 BP 141 / 71; Pulse 90; Resp 18; Temp 98.4; Pulse Ox 99% on R/A; Pain 4/10; pf1 18:33 Body Mass Index 26.95 (75.75 kg, 167.64 cm) me1 18:33 Pain Scale: Adult me1 23:00 Pain Scale: Adult pf1 MDM: 18:29 Patient medically screened. [facility] 19:27 Discussion of test interpretation with radiology: I had a discussion with radiology [facility] regarding a test interpretation. 5mm obstructing stone on the left with mild hydro. 19:33 Differential diagnosis: Nonspecific abd pain, pyelonephritis, renal stone, 3 hydronephrosis, acute renal failure, uti. Data reviewed: vital signs, nurses notes, old medical records, previous evaluation for renal stones by dr Almanzar. patient's pcp is dr kwon. Consideration of Admission/Observation Escalation of care including admission/observation considered. 21:04 External Records Reviewed: BASELINE CR IS 1.2. DISCUSSED WITH DR BEAULIEU - ADVISED TO [facility] TRANSFER PATIENT SECONDRY TO UROLOGY SERVICES UNTIL THE . 21:05 I considered the following discharge prescriptions or medication management in the [facility] emergency department Medications were administered in the Emergency Department. See MAR. Response to treatment: the patient's symptoms have mildly improved after treatment. 21:05 ED course: PATIENT INITIALLY DECLINED ADMISSION BUT PATIENT WITH INTRACTABLE PAIN AND cp3 AGREES TO ADMISSION. 21:45 ED course: Patient was excepted by urologist at [facility]. sp4 06/29 18:29 Order name: CBC with Diff; Complete Time: 20:04 3 06/29 20:04 Interpretation: WBC 10.20; RBC 4.41; HGB 12.8; HCT 38.0; MCV 86.0; MCH 29.0; MCHC 33.7; cp3 PLT 207; RDW 14.7; MPV 7.8; ALICE% 86.8; LYM% 10.1; MN% 2.0; EOSINOPHIL % 0.8; BASO% 0.3; NEUT A 8.9; LYMA 1.0; MNA 0.2; EOSA 0.1; BASOA 0.0. 06/29 18:29 Order name: Comprehensive Metabolic Panel; Complete Time: 20:07 [facility] 06/29 20:12 Interpretation: Normal except: NA 132; K 4.3; CL 103; CO2 21; ANION GAP 12.3; GLUC 317; cp3 BUN 21; CRE 1.54; GFR 36; AST 25; ALT 42; ALK 105; BILIT 0.5; CA 9.3; TP 7.5; ALB 3.9; GLOB 3.6; A/G 1.1. 06/29 18:29 Order name: Urinalysis w/ reflexes; Complete Time: 20:20 [facility] 06/29 20:20 Order name: Urine Culture [facility] 06/29 22:04 Order name: SARS RAPID sp4 06/29 22:29 Order name: Glucose, Ancillary Testing [facility] 06/29 23:25 Order name: Glucose, Ancillary Testing [facility] 06/29 18:29 Order name: CT Abd/Pelvis - Without Contrast; Complete Time: 19:48 [facility] 06/29 19:48 Interpretation: Abnormal. [facility] 06/29 18:29 Order name: Saline Lock; Complete Time: 21:50 [facility] 06/29 22:04 Order name: Accucheck; Complete Time: 22:16 sp4 Administered Medications: 19:45 Drug: morphine IVP or IV 4 mg IVP once over 4 mins Route: IVP; Infused Over: 4 mins; pf1 Site: right antecubital; 20:40 Follow up: Response: No adverse reaction; Marked relief of symptoms; Pain is unchanged, pf1 physician notified; RASS: Alert and Calm (0) 19:45 Drug: Ondansetron IVP 4 mg IVP once; over 2 minutes Route: IVP; Site: right antecubital;pf1 20:40 Follow up: Response: No adverse reaction; Marked relief of symptoms pf1 19:45 Drug: NS 0.9% IV 1000 ml IV at 1 bolus Per protocol; 1000 mL bolus Route: IV; Rate: 1 pf1 bolus; Site: right antecubital; 21:00 Follow up: Response: No adverse reaction; Marked relief of symptoms; IV Status: pf1 Completed infusion; IV Intake: 1000ml 20:15 Drug: morphine IVP or IV 4 mg IVP once over 4 mins Route: IVP; Infused Over: 4 mins; pf1 Site: right antecubital; 21:00 Follow up: Response: No adverse reaction; Marked relief of symptoms; Pain is unchanged, pf1 physician notified; RASS: Alert and Calm (0) 20:15 Drug: Ondansetron IVP 4 mg IVP once; over 2 minutes Route: IVP; Site: right antecubital;pf1 21:00 Follow up: Response: No adverse reaction; Marked relief of symptoms; Nausea is decreasedpf1 21:00 Drug: Rocephin IV 1 grams IV at bolus once; Given slow IV push per pharmacy pf1 instructions Route: IV; Rate: bolus; Site: right antecubital; 21:02 Follow up: Response: No adverse reaction; IV Status: Completed infusion pf1 21:00 Drug: Ketorolac IVP 15 mg IVP once Route: IVP; Site: right antecubital; pf1 21:51 Follow up: Response: No adverse reaction; Marked relief of symptoms; Pain is decreased pf1 21:00 Drug: NS 0.9% IV 1000 ml IV at 1000 ml once Route: IV; Rate: 1000 ml; Site: right pf1 antecubital; 21:51 Follow up: Response: No adverse reaction; Marked relief of symptoms pf1 22:00 Follow up: Response: No adverse reaction; Marked relief of symptoms; IV Status: pf1 Completed infusion; IV Intake: 1000ml 21:43 Drug: morphine IVP or IV 2 mg IVP once over 4 mins Route: IVP; Infused Over: 4 mins; pf1 Site: right antecubital; 22:40 Follow up: Response: No adverse reaction; Marked relief of symptoms; Pain is decreased; pf1 RASS: Alert and Calm (0) 22:15 Drug: Insulin Regular Human IVP 5 units IVP once {Co-Signature: bp (Mervin Velazco pf1 RN).} Route: IVP; Site: right antecubital; 23:15 Follow up: Response: No adverse reaction; Marked relief of symptoms; Blood sugar is pf1 lowered Disposition Summary: 06/29/23 21:02 Transfer Ordered Notes: Transfer Location: [facility] cp3 Reason: Higher level of care cp3 Condition: Stable cp3 Problem: an acute exacerbation cp3 Symptoms: have worsened cp3 Accepting Physician: PENDING(06/29/23 23:46) pf1 Diagnosis - Hydronephrosis with renal and ureteral calculous obstruction cp3 - Acute kidney failure, unspecified cp3 - UTI/ Urinary tract infection, site not specified cp3 - Other abdominal pain - LEFT FLANK PAIN cp3 - Left ureteral stone with hydronephrosis, obstructing left ureteral stone, sp4 pyelonephritis Forms: - Medication Reconciliation Form cp3 - SBAR form cp3 Signatures: Dispatcher [employer] Harpreet Romo MD MD cp3 Bethanie More RN RN pf1 Levy Montano MD MD sp4 Amber Liu RN RN me1 Mervin Velazco RN bp Corrections: (The following items were deleted from the chart) 20:12 20:08 NA 132; K 4.3; CL 103; CO2 21; ANION GAP 12.3; GLUC 317; BUN 21; CRE 1.54; GFR cp3 36; AST 25; ALT 42; ALK 105; BILIT 0.5; CA 9.3; TP 7.5; ALB 3.9; GLOB 3.6; A/G 1.1. cp3 21:45 21:02 PENDING cp3 sp4 23:46 21:45 PENDING sp4 pf1
--- NOTE | 2023-06-29 21:02 | ER ---
Nurse's Notes [facility] Name: Smita Covarrubias Age: 72 yrs Sex: Female : 1950 Arrival Date: 06/29/2023 Time: 18:11 Bed IW10 Private MD: Glenna Butler C Diagnosis: Hydronephrosis with renal and ureteral calculous obstruction;Acute kidney failure, unspecified;UTI/ Urinary tract infection, site not specified;Other abdominal pain-LEFT FLANK PAIN;Left ureteral stone with hydronephrosis, obstructing left ureteral stone, pyelonephritis Presentation: 06/29 18:33 Chief complaint: Patient states: c/o left flank pain and nausea that started a couple me1 of hours ago. Coronavirus screen: Vaccine status: Patient reports receiving the 2nd dose of the covid vaccine. Ebola Screen: No symptoms or risks identified at this time. Initial Sepsis Screen: Does the patient meet any 2 criteria? No. Patient's initial sepsis screen is negative. Does the patient have a suspected source of infection? No. Patient's initial sepsis screen is negative. Risk Assessment: Do you want to hurt yourself or someone else? Patient reports no desire to harm self or others. Onset of symptoms was June 29, 2023. 18:33 Method Of Arrival: Ambulatory nc1 18:33 Acuity: SHAHAB 3 me1 Historical: - Allergies: 18:34 Trulicity; me1 - PMHx: 18:34 Arthritis; Diabetes - NIDDM; Glaucoma; Hypercholesterolemia; Kidney stones; melanoma; me1 sepsis 2013; - PSHx: 18:34 Appendectomy; section; Cholecystectomy; Lithotripsy; right knee surgery; me1 Tonsillectomy; Total abdominal hysterectomy; left knee replacement; - Immunization history:: Adult Immunizations up to date. - Social history:: Smoking status: Patient denies any tobacco usage or history of. - Family history:: not pertinent. Screenin:30 [facility] ED Fall Risk Assessment (Adult) History of falling in the last 3 months, pf1 including since admission No falls in past 3 months (0 pts) Confusion or Disorientation No (0 pts) Intoxicated or Sedated No (0 pts) Impaired Gait No (0 pts) Mobility Assist Device Used No (0 pt) Altered Elimination No (0 pt) Score/Fall Risk Level 0 - 2 = Low Risk Oriented to surroundings, Maintained a safe environment, Educated pt \T\ family on fall prevention, incl call for assistance when getting out of bed, Assessed \T\ reinforced patient's understanding of fall precautions, Provided non-skid footwear, Hourly rounding (assess needs \T\ fall precautionary measures) done, Used ambulatory aids as needed (educated on \T\ assisted with), Used gait belt as appropriate. 19:30 Abuse screen: Denies threats or abuse. Nutritional screening: No deficits noted. pf1 Tuberculosis screening: No symptoms or risk factors identified. Assessment: 19:15 General: Appears in no apparent distress. uncomfortable, well groomed, well developed, pf1 Behavior is cooperative, appropriate for age, crying, quiet. 19:15 Pain: Complains of pain in left flank pain that radiates to LUQ Pain currently is 10 pf1 out of 10 on a pain scale. Neuro: No deficits noted. Level of Consciousness is awake, alert, obeys commands, Oriented to person, place, time, situation. Cardiovascular: No deficits noted. Capillary refill < 3 seconds Patient's skin is warm and dry. Respiratory: No deficits noted. Airway is patent Respiratory effort is even, unlabored, Respiratory pattern is regular, symmetrical. GI: Abdomen is round non-distended, Bowel sounds present X 4 quads. Abd is soft and non tender X 4 quads. Reports upper abdominal pain, nausea. : No deficits noted. No signs and/or symptoms were reported regarding the genitourinary system. EENT: No deficits noted. No signs and/or symptoms were reported regarding the EENT system. Musculoskeletal: Reports pain in left flank pain. 20:15 Reassessment: Patient appears in no apparent distress at this time. Patient and/or pf1 family updated on plan of care and expected duration. Pain level reassessed. Patient is alert, oriented x 3, equal unlabored respirations, skin warm/dry/pink. Patient states symptoms have improved. 21:00 Reassessment: Patient appears in no apparent distress at this time. Patient and/or pf1 family updated on plan of care and expected duration. Pain level reassessed. Patient is alert, oriented x 3, equal unlabored respirations, skin warm/dry/pink. Patient states symptoms have not improved. 22:00 Reassessment: Patient appears in no apparent distress at this time. Patient and/or pf1 family updated on plan of care and expected duration. Pain level reassessed. Patient is alert, oriented x 3, equal unlabored respirations, skin warm/dry/pink. Patient states symptoms have not improved. 23:00 Reassessment: Patient appears in no apparent distress at this time. Patient and/or pf1 family updated on plan of care and expected duration. Pain level reassessed. Patient is alert, oriented x 3, equal unlabored respirations, skin warm/dry/pink. Patient states feeling better. Patient states symptoms have improved. Vital Signs: 18:33 BP 117 / 73; Pulse 86; Resp 18; Temp 98.4(TE); Pulse Ox 100% on R/A; Weight 75.75 kg; me1 Height 5 ft. 6 in. ; Pain 10/10; 20:00 BP 120 / 76; Pulse 68; Resp 15; Pulse Ox 97% on R/A; pf1 21:00 BP 134 / 76; Pulse 72; Resp 16; Pulse Ox 97% on R/A; pf1 22:00 BP 135 / 82; Pulse 65; Resp 18; Pulse Ox 98% ; pf1 23:00 BP 141 / 71; Pulse 90; Resp 18; Temp 98.4; Pulse Ox 99% on R/A; Pain 4/10; pf1 18:33 Body Mass Index 26.95 (75.75 kg, 167.64 cm) me1 18:33 Pain Scale: Adult me1 23:00 Pain Scale: Adult pf1 ED Course: 18:13 Patient arrived in ED. rg4 18:13 Glenna Butler MD is Private Physician. rg4 18:14 Harpreet Andrews MD is Attending Physician. cp3 18:34 Triage completed. me1 18:34 Arm band placed on Patient placed in waiting room. me1 18:43 CT Abd/Pelvis - Without Contrast In Process Unspecified. EDMS 19:15 Patient has correct armband on for positive identification. Bed in low position. Call pf1 light in reach. 19:45 Inserted saline lock: 22 gauge in right antecubital area, using aseptic technique. pf1 20:59 Initiated transfer with Katherine at [facility]. rv1 21:26 Attending Physician role handed off by Harpreet Andrews MD sp4 21:26 Levy Montano MD is Attending Physician. sp4 21:31 Doc to Doc with Urologist at [facility]. rv1 22:05 Pt accepted to [facility] Rm [address] Umana. rv1 22:16 SARS RAPID Sent. pf1 22:46 Called [place] with EMS for Transfer Truck, given 10 min ETA. rv1 23:00 Provided Education on: transfer education. pf1 23:45 No provider procedures requiring assistance completed. pf1 23:45 Patient transferred, IV remains in place. pf1 Administered Medications: 19:45 Drug: morphine IVP or IV 4 mg IVP once over 4 mins Route: IVP; Infused Over: 4 mins; pf1 Site: right antecubital; 20:40 Follow up: Response: No adverse reaction; Marked relief of symptoms; Pain is unchanged, pf1 physician notified; RASS: Alert and Calm (0) 19:45 Drug: Ondansetron IVP 4 mg IVP once; over 2 minutes Route: IVP; Site: right antecubital;pf1 20:40 Follow up: Response: No adverse reaction; Marked relief of symptoms pf1 19:45 Drug: NS 0.9% IV 1000 ml IV at 1 bolus Per protocol; 1000 mL bolus Route: IV; Rate: 1 pf1 bolus; Site: right antecubital; 21:00 Follow up: Response: No adverse reaction; Marked relief of symptoms; IV Status: pf1 Completed infusion; IV Intake: 1000ml 20:15 Drug: morphine IVP or IV 4 mg IVP once over 4 mins Route: IVP; Infused Over: 4 mins; pf1 Site: right antecubital; 21:00 Follow up: Response: No adverse reaction; Marked relief of symptoms; Pain is unchanged, pf1 physician notified; RASS: Alert and Calm (0) 20:15 Drug: Ondansetron IVP 4 mg IVP once; over 2 minutes Route: IVP; Site: right antecubital;pf1 21:00 Follow up: Response: No adverse reaction; Marked relief of symptoms; Nausea is decreasedpf1 21:00 Drug: Rocephin IV 1 grams IV at bolus once; Given slow IV push per pharmacy pf1 instructions Route: IV; Rate: bolus; Site: right antecubital; 21:02 Follow up: Response: No adverse reaction; IV Status: Completed infusion pf1 21:00 Drug: Ketorolac IVP 15 mg IVP once Route: IVP; Site: right antecubital; pf1 21:51 Follow up: Response: No adverse reaction; Marked relief of symptoms; Pain is decreased pf1 21:00 Drug: NS 0.9% IV 1000 ml IV at 1000 ml once Route: IV; Rate: 1000 ml; Site: right pf1 antecubital; 21:51 Follow up: Response: No adverse reaction; Marked relief of symptoms pf1 22:00 Follow up: Response: No adverse reaction; Marked relief of symptoms; IV Status: pf1 Completed infusion; IV Intake: 1000ml 21:43 Drug: morphine IVP or IV 2 mg IVP once over 4 mins Route: IVP; Infused Over: 4 mins; pf1 Site: right antecubital; 22:40 Follow up: Response: No adverse reaction; Marked relief of symptoms; Pain is decreased; pf1 RASS: Alert and Calm (0) 22:15 Drug: Insulin Regular Human IVP 5 units IVP once {Co-Signature: bp (Mervin Velazco pf1 RN).} Route: IVP; Site: right antecubital; 23:15 Follow up: Response: No adverse reaction; Marked relief of symptoms; Blood sugar is pf1 lowered Medication: 23:45 VIS not applicable for this client. pf1 Intake: 21:00 IV: 1000ml; Total: 1000ml. pf1 22:00 IV: 1000ml; Total: 2000ml. pf1 Outcome: 21:02 ER care complete, transfer ordered by cp3 23:44 Transferred by ground EMS to [facility], Transfer form completed. pf1 X-rays sent w/ patient. 23:44 Condition: stable 23:44 Instructed on the need for transfer, Demonstrated understanding of instructions, Patient report given to CORRINA Dhaliwal 23:46 Patient left the ED. pf1 Signatures: Dispatcher [employer] Harpreet Romo MD MD cp3 Michaela Barton rg4 Bethanie More RN RN pf1 Willow Huang rv1 Levy Montano MD MD sp4 Amber Liu RN RN nc1 Juan A, Mervin RN bp Corrections: (The following items were deleted from the chart) 06/30 07:35 07:32 General: Appears pf1 pf1
[2023-06-29] MEDS ORDERED: MORPHINE 2 MG/ML SYR ONE (21:51)
[2023-06-29] MEDS ORDERED: INSULIN -REGULAR HUMAN 50 UNIT/0.5 ML ML ONE (22:31)
[2023-06-29 22:57] LABS: SARS-CoV-2 Antigen Rapid Res Negative (Negative)
[2023-06-30 01:32] VITALS: BP 117/73; TEMP 98.4; O2SAT 100
== END 2023-06-29 23:46 | disposition short-term general hospital (02) ==
LOC: ER 18:11
DX: N13.2 Hydronephrosis with renal and ureteral calculous obstruction (principal); N12 Tubulo-interstitial nephritis, not specified as acute or chronic; N17.9 Acute kidney failure, unspecified; N39.0 Urinary tract infection, site not specified; Z20.822 Contact with and (suspected) exposure to COVID-19; Z87.442 Personal history of urinary calculi; Z88.8 Allergy status to other drugs, medicaments and biological substances
CPT/HCPCS: 96361; 87088; 85025; 81001; 87086; 36415; 82947 ×2; 80053; 74176; 96375; 96374; 99285; 87811; J1815; J2270; J2405 ×2; J7030 ×2; J0696; 87077; 87186

== ENCOUNTER 2023-08-18 07:17 | Day surgery (SDC) | payer OTHER ==
[2023-08-07 14:03] LABS: Absolute Lymphocytes (CBC) 1.5 K/uL (0.7-4.9); Hematocrit 33.2 % (36.0-45.0); Lymphocytes % 22.6 % (15.3-44.8); MCV 83.9 fL (80-100); MPV 7.8 fL (7.6-11.3); Platelets 207 thou/uL (152-406); RBC Red Blood Cell Count 3.95 M/uL (3.86-4.86)
[2023-08-07 14:21] LABS: Protime INR 0.95
--- NOTE | 2023-08-07 14:26 | RAD REPORT ---
EXAM DESCRIPTION: Alissa Single View08/07/2023 2:02 pm CLINICAL HISTORY: Preop for genitourinary surgery COMPARISON: 2020 FINDINGS: The lungs appear clear of acute infiltrate. The heart is normal size IMPRESSION: No acute abnormalities displayed
[2023-08-07 14:30] LABS: Potassium 4.2 mEq/L (3.5-5.1)
--- NOTE | 2023-08-07 15:40 | EKG ---
Test Date: 2023-08-07 Test Time: 13:34:57 Aircraft Assembler: COURTNEY MEASUREMENT RESULTS: Intervals: Rate: 80 OK: 140 QRSD: 86 QT: 386 QTc: 445 [place]: P: 53 OK: 140 QRS: 61 T: 71 INTERPRETIVE STATEMENTS: Normal sinus rhythm Low voltage QRS Borderline ECG Compared to ECG 07/30/2021 22:57:00 Low QRS voltage now present Electronically Signed On 08-07-23 15:39:51 CDT by Sikp Okeefe
[2023-08-18] MEDS ORDERED: GENTAMICIN 80 MG/100 ML BAG 0 MG/0 ML BAG IV ONE (07:56)
[2023-08-18] MEDS ORDERED: NA CHLORIDE 0.9% 1,000 ML ONE (07:57)
[2023-08-18] MEDS ORDERED: Gentamicin Inj 160 MG in NA CHLORIDE 0.9% 100 ML IV ONE (08:00)
[2023-08-18] MEDS ORDERED: FENTANYL CITR 100 MCG/2 ML ONE (08:04)
[2023-08-18] MEDS ORDERED: propofoL 200 MG/20 ML VIAL IV ONE (08:05)
[2023-08-18] MEDS ORDERED: MIDAZOLAM HCL 2 MG/2 ML INJ ONE (08:06)
[2023-08-18] MEDS ORDERED: LIDOCAINE 1% MPF 5 ML VIAL ONE (08:06)
[2023-08-18] MEDS ORDERED: ONDANSETRON 4 MG/2 ML VIAL ONE (08:07)
[2023-08-18] MEDS ORDERED: ROCURONIUM 50 MG/5 ML VIAL IV ONE (08:07)
[2023-08-18] MEDS: AMPICILLIN SODIUM 2 GM/VIAL VIAL ONE ×2 (08:32→08:37)
[2023-08-18] MEDS ORDERED: SUGAMMADEX SODIUM 200 MG/2 ML VIAL IV ONE (08:34)
[2023-08-18] MEDS ORDERED: SUCCINYLCHOLINE 20 MG/ML (10 ML) IV ONE (08:34)
[2023-08-18] MEDS ORDERED: SCOPOLAMINE HYDROBROMIDE PATCH TD ONE (08:40)
[2023-08-18] MEDS ORDERED: dexAMETHasone 10 MG/ML VIAL ONE (08:56)
[2023-08-18] MEDS ORDERED: KETOROLAC 30 MG/ML INJ ONE (09:13)
[2023-08-18] MEDS ORDERED: CEFTRIAXONE 1,000 MG in NA CHLORIDE 0.9% 50 ML IVPB ONE (09:15)
[2023-08-18] MEDS ORDERED: Mastisol Adhesive Liq ONE (09:23)
[2023-08-18 09:40] VITALS: O2SAT 100
[2023-08-18] MEDS ORDERED: HYDROCODONE/APAP 5/325 MG TAB ONE (10:42)
[2023-08-18 10:48] VITALS: BP 116/63; TEMP 97
--- NOTE | 2023-08-18 11:05 | RAD REPORT ---
EXAM DESCRIPTION: RAD - Urethrocystogrphy Retrograde - 08/18/2023 10:56 am CLINICAL HISTORY: ICD N 20.0 FINDINGS: 7 fluoroscopic spot images obtained. Fluoroscopy time 0.1 minutes Left ureter was cannulated and contrast administered. Subsequently an ureteral stent was exchanged. E xamination was performed by Dr Almanzar
--- NOTE | 2023-08-18 12:06 | OP ---
Surgeon: DENA NAVARRO Preoperative Diagnoses: 1.Left ureterolithiasis. 2.Status post left nephrostomy tube placement. Postoperative Diagnoses: 1.Left ureterolithiasis. 2.Status post left nephrostomy tube placement. Principal Procedure: 1.Cystoscopy. 2.Left retrograde pyelography. 3.Left ureteroscopy with laser lithotripsy. 4.Ureteroscopic stone basketing. 5.Left ureteral stent placement. 6.Removal of left nephrostomy tube. Indication For Procedure: Ms. Carney is a 72-year-old woman with 4 mm ureterolithiasis that was event ually causing obstruction and sepsis requiring nephrostomy tube placement. She presents today for de finitive management of her stone and with a urine culture previously resistant to ampicillin. Procedure In Detail: The patient was consented in the preoperative holding area before being transfe rred to the operative suite where general anesthesia was induced. She was given ampicillin 2 g and g entamicin 160 mg IV antimicrobial prophylaxis, and pneumo boots were provided for DVT prophylaxis. S he was placed in the lithotomy position, padded and secured to the table appropriately. An additiona l 1 g of ceftriaxone was also provided for enhanced antimicrobial coverage given the presence of the nephrostomy tube despite negative preoperative urine cultures. After being placed in the lithotomy p osition, her genitalia was prepped with Hibiclens and draped in standard fashion. The case was begun using a 22-Armenian rigid cystoscope to traverse the urethra and into the bladder with ease. The blad rashaun was decompressed of fluid and urine and then surveyed. No papillary mucosal lesions were noted. The ureteral orifices were orthotopic in location, and I cannulated the left ureteral orifice using a 5-Armenian ureteral access catheter. Left retrograde pyelography: Using a 70:30 mixture of Omnipaque and saline, contrast was injected via the lumen of the 5-Armenian ur eteral access catheter and did propagate up the distal beyond a point of subtle obstruction seen in t he mid distal ureter before entering the proximal ureter and eventually the renal pelvis where the ca lices were delineated and without signs of obstruction due to the presence of a nephrostomy tube plac ed in the upper pole calyx. As a result, I passed a Sensor wire via the 5-Armenian ureteral access cat heter, coiling it next to the nephrostomy tube in the upper pole calyx. Over the Sensor wire, I pass ed a dual-lumen catheter into the distal ureter to dilate the ureteral orifice until the dual-lumen c atheter reached a point of obstruction in the mid distal ureter where the stone was likely situated. The stones were radiolucent and thus not visible fluoroscopically. I then passed a SoNetJob guidewir e via the second lumen of the dual-lumen catheter and removed the dual-lumen catheter. Over the Bent son guidewire, I navigated the semi-rigid ureteroscope into the distal ureter to the point of obstruc tion previously seen and identify the presence of a ureteral calculus. I thus utilized a 272 nm aihuishouth er laser fiber and a power setting of 0.8 joules and 8 hertz that I eventually increased to 15 hertz to begin to fragment the stone, which was still somewhat lodged within the distal ureter. After a po rtion of the stone had been fragmented, the remnant stone did begin to float more proximally into the upper mid ureter, and to avoid its entry into the collecting system, I utilized a 1.9-Armenian ZeroTip Nitinol basket to grasp the stone and deliver it from the ureteral orifice intact and without any di fficulty. This was sent for chemical analysis. I then back-loaded the cystoscope over the indwellin g safety wire and passed a 6-Armenian x 26 cm double-J ureteral stent, which I left on its tether. We then cut the nephrostomy tube, releasing it from the spot in her flank and then removed the nephrosto my tube in its entirety. The bladder had been decompressed of fluid and urine after the stent was pl aced, and I tethered the string of the stent. I secured it to her introitus using Mastisol and Steri -Strips. She was then taken out of the lithotomy position, awakened from general anesthesia, transfe rred to a stretcher, and then transferred to the recovery room in good condition. Complications: None. Discharge Disposition: She may follow up in the [facility]rology [facility] on Thursday to have the nephrostomy tub e removed. I will discharge her with 7 days of Levaquin. Subsequent followup should be determined t o evaluate her recurrent stone forming risk potential. As such, I would like for her to do a Litholi nk metabolic stone profile assessment about a month after the stent is removed and follow up with me thereafter in about 2-3 months. WR/MODL Voice ID: [id number] Report ID: [id number]
== END 2023-08-18 11:10 | disposition home or self-care (01) ==
LOC: OR 07:17
PROVIDERS: ATTEND Urology
PROC: 0T768DZ Dilation of Right Ureter with Intraluminal Device, Via Natural or Artificial Opening Endoscopic (ICD-10-PCS; 2023-08-18)
PROC: 0TC78ZZ Extirpation of Matter from Left Ureter, Via Natural or Artificial Opening Endoscopic (ICD-10-PCS; principal; 2023-08-18 09:00)
DX: N20.1 Calculus of ureter (principal); F41.9 Anxiety disorder, unspecified; E11.9 Type 2 diabetes mellitus without complications; I10 Essential (primary) hypertension
CPT/HCPCS: 93005; 87088; 85025; 87086; 80048; 36415; 85610; 82947 ×2; 88300; 82360; 71045; 74450; 51610; 52356; J2704; J2001; J1580; J2250; J3010; J1100; J2405; J0290; J7030; J0696